=== PATIENT | male | born 1945 | race African-American/Black ===

== ENCOUNTER 2017-08-21 15:25 | Inpatient (IN) | payer OTHER ==
[2017-08-21 16:10] LABS: #Eosinphils 0.1 thou/uL (0.0-0.7); #Lymphocytes 1.8 thou/uL (1.20-3.40); #Monocytes 0.7 thou/uL (0.11-0.59); #Neutrophils 3.6 thou/uL (1.40-6.50); %Basophils 0.8 % (0.0-1.0); %Eosinophils 2.1 % (0.0-10.0); %Lymphocytes 28.8 % (21.0-51.0); %Monocytes 11.8 % (0.0-10.0); %Neutrophils 56.6 % (42.0-75.0); Mean Corpuscular HGB CONC 32.7 g/dL (32.0-36.0); Mean Corpuscular Hemoglobin 28.9 pg (27.0-31.0); Mean Corpuscular Volume 88.6 fl (80.0-94.0); Mean Platelet Volume 6.9 fL (7.4-10.4); Platelet Count 219 thou/uL (130-400); RBC Distribution Width 13.7 % (11.5-14.5); Red Blood Cell (RBC) Count 5.53 mill/uL (4.70-6.10); White Blood Cell (WBC) Count 6.3 thou/uL (4.8-10.8)
--- NOTE | 2017-08-21 16:18 | RAD ---
PORTABLE CHEST ONE VIEW 08/21/17 at 3:57 p.m. HISTORY: Chest pain. FINDINGS: Comparison made to 02/08/17. Changes of median sternotomy again seen. The heart size is normal. The aorta is tortuous. The left si ded AICD remains in place. No focal areas of consolidation, pneumothorax or pleural effusions are see n. IMPRESSION: No acute process. POS: [facility]
[2017-08-21 16:27] LABS: ALT (SGPT) 43 U/L (8-55); AST (SGOT) 43 U/L (5-34); Albumin 3.2 g/dL (3.4-4.8); Alkaline Phosphatase 111 U/L (40-150); Anion Gap 9 mmol/L (10-20); BUN (Urea Nitrogen) 15 mg/dL (8.4-25.7); Bilirubin, Total 0.5 mg/dL (0.2-1.2); Calc. Creatinine Clearance 0 mL/min (70-130); Calcium 8.9 mg/dL (7.8-10.44); Carbon Dioxide 27 mmol/L (23-31); Chloride 106 mmol/L (98-107); Estimated GFR-MDRD Greater than 90; Glucose 146 mg/dL (80-115); Protein, Total 7.2 g/dL (5.8-8.1); Sodium 138 mmol/L (136-145)
[2017-08-21 16:45] LABS: CKMB 4.2 ng/mL (0-6.6); Troponin I 0.043 ng/mL (< 0.028)
[2017-08-21] MEDS ORDERED: hydrALAZINE 20 MG/ML VIAL ONE ×2 (17:36→18:27)
[2017-08-21] MEDS ORDERED: Ketorolac Tromethamine 30 MG/ML VIAL ONE (17:40)
[2017-08-21] MEDS ORDERED: Nitroglycerin 2% Ointment 1 INCH/1 GM Packet ONE (18:05)
[2017-08-21] MEDS ORDERED: Nitroglycerin 50 MG/250 ML BOT 250 ML ONE (19:08)
[2017-08-21 20:01] LABS: Troponin I 0.047 ng/mL (< 0.028)
[2017-08-21 20:14] LABS: INR-International Normal Ratio 1.6; PTT 30.4 SEC (22.9-36.1); Prothrombin Time 19.2 SEC (12.0-14.7)
[2017-08-21] MEDS ORDERED: niCARdipine 20MG In NaCl 20 MG/200 ML BAG ONE (21:04)
[2017-08-21] MEDS ORDERED: cloNIDine 0.1 MG TAB ONE (21:29)
[2017-08-21 22:58] LABS: Troponin I 0.057 ng/mL (< 0.028)
--- NOTE | 2017-08-21 23:11 | HP ---
DATE OF ADMISSION: 08/21/2017 CHIEF COMPLAINT: Chest pain. HISTORY OF PRESENT ILLNESS: This is a 72-year-old -[place] male, who has been incarcerated i n the sn[facility] and has been known history of coronary artery disease and CABG and history of hypertension . The patient was in his usual state of health at the snf and following his recent hospitalization at [facility] for the similar complaint of high blood pressures. He was sent home with amlo dipine 5 mg daily. The patient was having persistent chest pain since two days and has been complain ing to officers at the facility and they decided to bring him to [facility] from [place]. The pa candy was seen in the ER, he was alert and oriented, but he is in severe distress with pain of 4 on 1 0 intensity at the left precordium, associated with some nausea, but no vomiting, no diarrhea, no con stipation. Has no shortness of breath. The patient had similar chest pains in the past and it was n ot associated with high blood pressures. When the patient came in, his blood pressures were 195/110 and he was given hydralazine, which brought it down to 187/115 and then it went up again to 200/111. The patient received almost 2-3 doses of hydralazine in every 2-3 hours intervals and blood pressure s each time came back up. At this time, it is 200/111, so it was decided to admit the patient to the critical care unit with a nitroglycerin drip. The patient is high risk with coronary artery disease and his shutdown planner is not from this [facility]. The patient denies having any other known medical probl ems. PAST MEDICAL HISTORY: 1. Coronary artery disease. 2. Hypertension. PAST SURGICAL HISTORY: History of CABG many years ago. SOCIAL HISTORY: The patient is not a nonsmoker. No history of alcohol, no history of illicit drug u se. FAMILY HISTORY: No significant family history of coronary artery disease. REVIEW OF SYSTEMS: All 12 systems are reviewed with the patient thoroughly and found to be negative at this time. Systems reviewed are HEENT, CVS, PUBLIC HEALTH TECHNOLOGIST, respiratory, GI, , musculoskeletal, skin and i ntegumentary. The following complete review of systems was negative, unless otherwise mentioned in t he HPI or below: Constitutional: Weight loss or gain, sense of well-being, ability to conduct usual activities, exerc ise tolerance. Skin/Breast: Rash, itching, changes in hair growth or loss, nail changes, breast lumps, tenderness, swelling, nipple discharge. Eyes: Vision, double vision, tearing, blind spots, pain. ENT/Mouth: Headaches (location, time of onset, duration, precipitating factors), vertigo, lightheade dness, injury. Vision, double vision, tearing, blind spots, pain, nose bleeding, colds, obstruction, discharge, dental difficulties, gingival bleeding, dentures, neck stiffness, pain, tenderness, masses in thyroid or other areas. Cardiovascular: Precordial pain, substernal distress, palpitations, syncope, dyspnea on exertion, or thopnea, nocturnal paroxysmal dyspnea, edema, cyanosis, hypertension, heart murmurs, varicosities, ph lebitis, claudication. Respiratory: Pain, shortness of breath, wheezing, stridor, cough, hemoptysis, fever or night sweats. Gastrointestinal: Poor appetite, dysphagia, indigestion, abdominal pain, heartburn, eructation, naus ea, vomiting, hematemesis, jaundice, constipation, or diarrhea, abnormal stools (tien-colored, tarry, bloody, greasy, foul smelling), flatulence, hemorrhoids, recent changes in bowel habits. Genitourinary: Urgency, frequency, dysuria, nocturia, hematuria, polyuria, oliguria, unusual (or midlred nge in) color of urine, stones, hesitancy, change in size of stream, dribbling, acute retention or in continence, libido, potency. Musculoskeletal: Pain, swelling, redness or heat of muscles or joints, limitation, of motion, muscul ar weakness, atrophy, cramps. Neurologic/Psychiatric: Convulsions, paralyses, tremor, incoordination, paresthesias, difficulties w ith memory of speech, sensory or motor disturbances, or muscular coordination (ataxia, tremor), emoti onal problems, anxiety, depression, previous psychiatric care, unusual perceptions, hallucinations. Allergy/Immunologic: Skin rash, anemia, bleeding tendency, polydipsia, polyuria, intolerance to heat or cold. PHYSICAL EXAMINATION: VITAL SIGNS: Blood pressures were 200/111, respiratory rate of 18, saturation is 98% on room air. GENERAL: The patient is moderately built and moderately nourished. He appears to be in mild distres s at this time. HEENT: Atraumatic, normocephalic. PERRLA. Extraocular movements were intact. Oral mucosa is pink and moist. CARDIOVASCULAR: S1, S2 normal. No murmurs, rubs or gallops. LUNGS: Bilateral air entry was equal. No wheezing, no crackles. ABDOMEN: Soft, nontender. No guarding, no rebound tenderness. Bowel sounds normal. MUSCULOSKELETAL: No calf tenderness. No pedal edema. No joint tenderness, no joint swelling. SKIN: No cyanosis, no erythema, no rash, no pallor. PUBLIC HEALTH TECHNOLOGIST: Cranial nerve examination II-XII intact. No focal deficits were noted. NECK: No thyromegaly. No JVD was noted. PSYCHIATRIC: No signs of suicidal ideation, no signs of debo was noted. LABORATORY DATA: Sodium is 138, potassium 4.0, chloride is 106, bicarbonate is 27, BUN is 15, creati nine 0.86. AST is 43, ALT is 43, troponin is 0.043, and BNP was 320. WBC 6.3, hemoglobin 16.0, hematocrit is 49.0, platelets are normal. Chest x-ray was unremarkable. No evidence of any pleural effusions was noted. EKG showed no evidenc e of any ST segment changes. ASSESSMENT: 1. Acute hypertensive emergency. 2. Non-ST elevation myocardial infarction. 3. Acute on chronic congestive heart failure, likely diastolic dysfunction. 4. Hyperglycemia. PLAN: 1. Plan is to closely monitor this patient in the ICU. We will admit for nitroglycerin drip at this time. The patient is high cardiac risk, has elevated troponins and persistent chest pains. We will closely monitor this patient and need to bring the blood pressures down pretty quick. He has not re sponded to hydralazine 3 doses. So, we will start the patient on lisinopril 20 mg and also put him o n hydralazine 25 mg p.o. t.i.d. along with a drip. We will consult Cardiology. We will do a 2-D ech o to look for any evidence of wall motion abnormality. We will do a CT chest if his chest pain incre ases disproportionately. Right now his chest pain is 4 on 10 intensity. Need to rule out any eviden ce of aortic dissection. 2. The patient has a history of chronic congestive heart failure with diastolic dysfunction with marry vated BNP. We will continue with the above management at this time. 3. Mild hyperglycemia was noted. No evidence of any diabetes stated by the patient. We will do hem oglobin A1c. 4. The patient has a history of coronary artery disease with coronary artery bypass graft. We will start the patient on aspirin and also on Coreg 6.125 mg p.o. b.i.d. 5. Deep venous thrombosis prophylaxis with Lovenox. We will do 1 mg/kg b.i.d. for cardiac ischemia. I spent 75 minutes with this patient of this one hour as a critical care time.
--- NOTE | 2017-08-21 23:33 | RAD ---
PORTABLE CHEST: 08/21/17 HISTORY: Assess central line placement. COMPARISON: 08/21/17 at 3:57 p.m. FINDINGS/IMPRESSION: Central line via the right jugular has tip overlying SVC. Lungs are clear. no acute process or interv al change noted. POS: [facility]
[2017-08-21] MEDS ORDERED: Fentanyl 100 MCG/2 ML VIAL ONE (23:42)
[2017-08-22] MEDS ORDERED: Acetaminophen 325 MG TAB PO PRN (00:30)
[2017-08-22] MEDS ORDERED: Ondansetron ODT 4 MG TAB PO PRN (00:30)
[2017-08-22] MEDS ORDERED: Enoxaparin Sodium 80 MG/0.8 ML SYRINGE SC SCH (00:45)
[2017-08-22] MEDS ORDERED: Carvedilol 6.25 MG TAB PO SCH ×3 (00:45→10:06)
[2017-08-22] MEDS ORDERED: Famotidine/PF 20 mg/2ml Vial SLOW IVP SCH (00:45)
[2017-08-22] MEDS: hydrALAZINE 25 MG TAB PO SCH ×2 (00:50→08:33)
[2017-08-22 01:12] LABS: Troponin I 0.063 ng/mL (< 0.028)
[2017-08-22 01:25] VITALS: BMI 20.2
[2017-08-22] MEDS ORDERED: Magnesium 2 GM/NS 0.9% 100 ML 2 GM in Premix Bag 1 BAG IVPB SCH (02:45)
[2017-08-22 03:01] LABS: #Basophils 0.1 thou/uL (0.0-0.2); #Eosinphils 0.1 thou/uL (0.0-0.7); #Lymphocytes 1.2 thou/uL (1.20-3.40); #Monocytes 0.5 thou/uL (0.11-0.59); #Neutrophils 3.5 thou/uL (1.40-6.50); %Basophils 1.4 % (0.0-1.0); %Lymphocytes 22.7 % (21.0-51.0); %Monocytes 9.2 % (0.0-10.0); %Neutrophils 65.7 % (42.0-75.0); Hemoglobin 15.1 g/dL (14.0-18.0); Mean Corpuscular HGB CONC 32.9 g/dL (32.0-36.0); Mean Corpuscular Hemoglobin 28.8 pg (27.0-31.0); Mean Corpuscular Volume 87.4 fl (80.0-94.0); Platelet Count 238 thou/uL (130-400); RBC Distribution Width 13.6 % (11.5-14.5); Red Blood Cell (RBC) Count 5.24 mill/uL (4.70-6.10); White Blood Cell (WBC) Count 5.4 thou/uL (4.8-10.8)
[2017-08-22 03:17] LABS: Anion Gap 9 mmol/L (10-20); BUN (Urea Nitrogen) 15 mg/dL (8.4-25.7); Calc. Creatinine Clearance 66 mL/min (70-130); Calcium 8.6 mg/dL (7.8-10.44); Carbon Dioxide 27 mmol/L (23-31); Cardiac Risk 4.2 (Less than 4.5); Chloride 106 mmol/L (98-107); Cholesterol 160 mg/dl (< 200 Desired); Estimated GFR-MDRD Greater than 90; Glucose 183 mg/dL (80-115); HDL Cholesterol 38 mg/dL (>60 Neg Risk); LDL Cholesterol, Calculated 107 mg/dL; Magnesium 1.7 mg/dL (1.6-2.6); Phosphorus 2.5 mg/dL (2.3-4.7); Potassium 3.8 mmol/L (3.5-5.1); Sodium 138 mmol/L (136-145); Triglycerides 76 mg/dL (Less than 150)
[2017-08-22] MEDS: HYDROcodone/Acetaminophen 7.5/325 mg Tablet PO PRN ×2 (07:57→22:12)
[2017-08-22] MEDS: Lisinopril 20 MG TAB PO SCH (08:33)
[2017-08-22] MEDS: Aspirin 325 MG TAB PO SCH (08:34)
[2017-08-22] MEDS: Nitroglycerin 50 MG/250 ML BOT 250 ML IVPB SCH ×2 (08:41→17:03)
[2017-08-22] MEDS: Enoxaparin Sodium 60 MG/0.6 ML SYRINGE SC SCH ×4 (09:00→19:52)
[2017-08-22] MEDS ORDERED: Metoprolol Tartrate 5 MG/5 ML VIAL IVP SCH (10:00)
--- NOTE | 2017-08-22 10:43 | CON ---
DATE OF CONSULTATION: 08/22/2017 REASON FOR CONSULTATION: Chest pain, severe hypertension, coronary artery disease, borderline tropon ins, previous defibrillator. HISTORY OF PRESENT ILLNESS: Mr. Mendez Bray is a 72-year-old man brought here from the [facility] The patient had severe chest pain yesterday in the left side of his chest going u p to the left shoulder and left arm. He says that "felt like when having a heart attack." The patient is still having some pain now, but seemed to be more around the defibrillator site. The patient's past history, he had bypass surgery, he says in the in [place], he says x1. He says, they did not take any veins from his legs, so from his description, I would suspect he had int ernal mammary artery grafting. He has had cardiac catheterization as recently 2 years ago. He gives some history that ultimately ca theterization was done and from his description, there was no obstructive stenosis, although there wa s some consideration for stenting, but the history is not completely clear and no other records are a vailable. He says, he did not have a stent placed at that time. He had defibrillator implantation a couple of years ago. He said that was done at [facility], unknown type of defibrillator in terms of the company. PAST MEDICAL HISTORY: Coronary artery disease, hypertension. PAST SURGICAL HISTORY: Bypass as outlined above. SOCIAL HISTORY: Nonsmoker. He resides in the [facility]. FAMILY HISTORY: Negative for heart disease at a young age. REVIEW OF SYSTEMS: Constitutional: No significant weight gain or loss. Vision: No changes. Heari ng: No changes. Pulmonary: No cough or wheezing. Gastrointestinal: No nausea, vomiting, diarrhea . Skin: No rashes. Neurologic: No unilateral weakness or numbness. Psychiatric: No unusual depression or anxiety. Hematologic: No unusual bruising. Genitourinary: No burning with urination. ALLERGIES: IODINE, we will have to check with him what that means. PHYSICAL EXAMINATION: GENERAL: A pleasant elderly gentleman, in no distress. VITAL SIGNS: Blood pressure 147/96, pulse is variable, sometimes in the 100 range. HEENT: Eyes, sclerae nonicteric. Mouth mucous membranes moist. NECK: Supple, no lymphadenopathy. LUNGS: Clear, no wheezing, rales or rhonchi. CARDIAC: Tachycardic at times. I do not hear a murmur, rub or gallop. ABDOMEN: Soft, nontender. EXTREMITIES: No clubbing or cyanosis. His ankles are in a cast and wrapped. He has chronic edema. He has good femoral pulses bilaterally. PERTINENT LABORATORY DATA AND X-RAY FINDINGS: INR is 1.6. Troponin peak at 0.063, which is in the i ndeterminate range. EKG shows intermittent paced rhythm, but it is confusing about the rhythm strips , there are some pacing spikes and some T waves. There is also some periods of tachycardia and this is also just completely sensed rhythm. ASSESSMENT: 1. Hypertensive urgency with a blood pressure over 200 at times. 2. Chest pain. 3. Previous bypass surgery. 4. Previous defibrillator. PLAN: 1. Increase beta blockers. 2. Trying to get more information about the defibrillator and to see if the device is functioning no rmally. 3. Echocardiography. 4. Probably cardiac catheterization. 5. Also apparently some history of atrial fibrillation on Coumadin. Coumadin is being held. 6. Continue Lovenox. Prognosis guarded.
[2017-08-22 13:24] LABS: Cocaine Metabolite Screen Not Detected (NotDetected); Medtox Reader # READER 4; Methamphetamine Not Detected (NotDetected); Opiate Screen Detected (NotDetected); Phencyclidine (PCP) Not Detected (NotDetected); THC/Cannabinoid Screen Not Detected (NotDetected)
[2017-08-22 13:25] LABS: Amphetamine Not Detected (NotDetected); Barbiturates Screen Not Detected (NotDetected); Benzodiazepine Screen Not Detected (NotDetected); Medtox Control Line Valid? VALID (VALID); Methadone Not Detected (NotDetected); Oxycodone Screen Not Detected (NotDetected); Tricyclic Screen Not Detected (NotDetected)
--- NOTE | 2017-08-22 14:25 | PDOC.PN ---
- Subjective Encounter Start Date: 08/22/17 Encounter Start Time: 12:00 John is seen today, alert and oriented. He continuos to have chest pains. pt remains on Nitro Drip at 30mcg/min - Objective Resuscitation Status: Resuscitation Status FULL:Full Resuscitation MAR Reviewed: Yes Vital Signs & Weight: Vital Signs (12 hours) Temp Pulse BP 08/22/17 08:34 176/109 H 08/22/17 08:33 83 176/109 H 08/22/17 03:00 98.6 F Weight Admit Weight 129 lb 6.581 oz Weight 129 lb 6.581 oz Most Recent Monitor Data Heart Rate from ECG 93 NIBP 134/77 NIBP BP-Mean 103 Respiration from ECG 13 SpO2 100 I&O: 08/21/17 08/22/17 08/23/17 06:59 06:59 06:59 Intake Total 492 Output Total 150 Balance 342 Result Diagrams: 08/22/17 02:23 08/22/17 02:23 Additional Labs: Accuchecks 08/22/17 08/22/17 12:31 10:21 POC Glucose 149 H 107 Radiology Reviewed by me: Yes EKG Reviewed by me: Yes Phys Exam - Physical Examination HEENT: PERRLA, moist MMs Neck: no nodes, no JVD Respiratory: no wheezing, no rales Cardiovascular: RRR, no significant murmur Gastrointestinal: soft, non-tender Musculoskeletal: no edema, pulses present Neurological: non-focal, normal sensation Lymphatic: no nodes Skin: no rash, normal turgor Dx/Plan (1) Accelerated hypertension Code(s): I10 - ESSENTIAL (PRIMARY) HYPERTENSION Status: Acute Comment: Patient has persistant Hypoertension affecting endorgans, Pt will continue on Nitrodrip, will increase hydralazine to 50mg TID, Coreg has been increased to 12.5mg po BID. pt on lisinopril 20mg po daily. (2) NSTEMI (non-ST elevated myocardial infarction) Code(s): I21.4 - NON-ST ELEVATION (NSTEMI) MYOCARDIAL INFARCTION Status: Acute Comment: Pt is on Lovenox 1mg SC BID. will continue with Aspirin. Cardiology Dr. Aguillon consulted. Planned for Cath on thursday. (3) Chest pain Code(s): R07.9 - CHEST PAIN, UNSPECIFIED Status: Acute Qualifiers: Chest pain type: chest pain due to myocardial ischemia Comment: Will continue to Monitor him in ICU. (4) Hx of CABG Status: Acute (5) Acute respiratory failure with hypoxia Code(s): J96.01 - ACUTE RESPIRATORY FAILURE WITH HYPOXIA Status: Acute Comment: Will continue to keep oxygen at 92 %, No h/o COPD. - Plan cont current plan of care, PT/OT, respiratory therapy, incentive spirometry, DVT proph w/lovenox * . - Discharge Day Encounter end time: 12:35 Review of Systems - Review of Systems Eyes: negative: Pain, Vision Change, Conjunctivae Inflammation, Eyelid Inflammation, Redness, Other ENT: negative: Ear Pain, Ear Discharge, Nose Pain, Nose Discharge, Nose Congestion, Mouth Pain, Mouth Swelling, Throat Pain, Throat Swelling, Other Respiratory: negative: Cough, Dry, Shortness of Breath, Hemoptysis, SOB with Excertion, Pleuritic Pain, Sputum, Wheezing Cardiovascular: chest pain, orthopnea, paroxysmal nocturnal dyspnea. negative: palpitations, edema, light headedness, other Gastrointestinal: negative: Nausea, Vomiting, Abdominal Pain, Diarrhea, Constipation, Melena, Hematochezia, Other Genitourinary: negative: Dysuria, Frequency, Incontinence, Hematuria, Retention , Other Musculoskeletal: negative: Neck Pain, Shoulder Pain, Arm Pain, Back Pain, Hand Pain, Leg Pain, Foot Pain, Other Skin: negative: Rash, Lesions, Jose Angel, Bruising, Other - Medications/Allergies Allergies/Adverse Reactions: Allergies Allergy/AdvReac Type Severity Reaction Status Date / Time iodine Allergy Verified 08/22/17 01:01 Medications: Current Medications Acetaminophen (Tylenol) 650 mg PO Q4H PRN PRN Reason: Headache/Fever or Pain Hydrocodone Bitart/Acetaminophen ([place] 7.5/325) 2 tab PO Q4H PRN PRN Reason: Severe Pain (7-10) Last Admin: 08/22/17 07:57 Dose: 2 tab Aspirin (Aspirin) 325 mg PO DAILY [facility] Last Admin: 08/22/17 08:34 Dose: 325 mg Carvedilol (Coreg) 12.5 mg PO BID [facility] Enoxaparin Sodium (Lovenox) 60 mg SC 0900,2100 [facility] Last Admin: 08/22/17 10:26 Dose: 60 mg Famotidine (Pepcid) 20 mg SLOW IVP Q12HR [facility] Hydralazine HCl (Apresoline) 50 mg PO TID [facility] Nitroglycerin/Dextrose (Nitroglycerin 50 Mg/250 Ml Bot) 250 mls @ 0 mls/hr IVPB INF LADAN; Titrate PRN Reason: Protocol Last Admin: 08/22/17 08:41 Dose: 250 mls Influenza Virus Vaccine (Fluzone High-Dose Syr) 0.5 ml IM .ONCE ONE Stop: 08/23/17 09:01 Lisinopril (Zestril) 20 mg PO DAILY [facility] Last Admin: 08/22/17 08:33 Dose: 20 mg Ondansetron HCl (Zofran Odt) 4 mg PO Q6H PRN PRN Reason: Nausea/Vomiting Ondansetron HCl (Zofran) 4 mg IVP Q6H PRN PRN Reason: Nausea/Vomiting Sodium Chloride (Flush - Normal Saline) 10 ml IVF Q12HR [facility] Last Admin: 08/22/17 10:41 Dose: 10 ml Sodium Chloride (Flush - Normal Saline) 10 ml IVF PRN PRN PRN Reason: Saline Flush
[2017-08-22] MEDS ORDERED: hydrALAZINE 25 MG TAB PO SCH (15:00)
[2017-08-22] MEDS ORDERED: Amlodipine 5 MG TAB PO SCH (17:45)
[2017-08-22] MEDS: Carvedilol 6.25 MG TAB PO SCH ×2 (18:15→19:35)
[2017-08-22] MEDS: Ondansetron PF 4 MG/2 ML Vial IVP PRN (19:42)
[2017-08-23] MEDS: Nitroglycerin 50 MG/250 ML BOT 250 ML IVPB SCH ×5 (01:13→20:08)
[2017-08-23] MEDS: HYDROcodone/Acetaminophen 7.5/325 mg Tablet PO PRN (02:20)
[2017-08-23] MEDS: Aspirin 325 MG TAB PO SCH (08:35)
[2017-08-23] MEDS: Albumin 5% 0 ML ONE ×2 (08:35→10:58)
[2017-08-23] MEDS: Lisinopril 20 MG TAB PO SCH ×3 (08:36→20:00)
[2017-08-23] MEDS: Famotidine/PF 20 mg/2ml Vial SLOW IVP SCH ×2 (08:37→20:00)
[2017-08-23] MEDS ORDERED: Albumin 25% 100 ML ONE (08:49)
[2017-08-23] MEDS ORDERED: Amlodipine 5 MG TAB PO SCH (09:00)
[2017-08-23] MEDS ORDERED: FLU VACC TS2017-18 (>65YR) 0.5 ML SYRINGE IM ONE (09:00)
[2017-08-23] MEDS ORDERED: Amlodipine 10 MG TAB PO SCH (09:00)
[2017-08-23] MEDS: Enoxaparin Sodium 60 MG/0.6 ML SYRINGE SC SCH (09:09)
[2017-08-23] MEDS ORDERED: Communication Order-Pharmacy FS SCH (09:30)
[2017-08-23] MEDS ORDERED: Diazepam 5 MG TAB PO SCH (09:30)
--- NOTE | 2017-08-23 09:42 | PRG ---
DATE OF SERVICE: 08/23/2017 SUBJECTIVE: Mr. Bray is feeling better, but the blood pressure is still high, still on high dose i ntravenous beta diamante. He has occasional chest pain. OBJECTIVE: LUNGS: Clear. CARDIAC: Normal S1, normal S2. ABDOMEN: Soft, nontender. EXTREMITIES: No edema. PERTINENT LABORATORY DATA AND IMAGING: Creatinine is 0.86. Echocardiogram showed severe left ventri cular hypertrophy. ASSESSMENT: 1. Chest pain. 2. Coronary artery disease. 3. Hypertensive heart disease. PLAN: Proceed to cardiac catheterization tomorrow. I discussed the risk and emphasized the risk of emergency bypass surgery, stent thrombosis, stent restenosis. The patient understands and wishes to proceed.
[2017-08-23] MEDS ORDERED: Spironolactone 25 MG TAB PO SCH (09:45)
[2017-08-23] MEDS: Carvedilol 25 MG TAB PO SCH ×2 (10:00→20:00)
[2017-08-23] MEDS: Albumin 25% 100 ML ONE ×2 (11:09→11:10)
[2017-08-23] MEDS: niCARdipine HCl 25 MG in Sodium Chloride 0.9% 250 ML 240 ML IVPB SCH ×5 (11:38→22:26)
--- NOTE | 2017-08-23 11:48 | CON ---
DATE OF CONSULTATION: 08/23/2017 CONSULTING PHYSICIAN: [facility]. REASON FOR CONSULTATION: ICU stay. HISTORY OF PRESENT ILLNESS: The patient is a 72-year-old -[place] male who is an inmate of the [facility]. He presented to the hospital on 08/21/2017 with chest pain and shortness of breath. He has been started on nitroglycerin drip. He is still having difficulty controlling his blood pressure. He is still having some chest pain. He is scheduled for cardiac catheterization tomorrow. PAST MEDICAL HISTORY: 1. Hypertension. 2. Coronary artery disease. PAST SURGICAL HISTORY: Coronary artery bypass grafting surgery many years ago. SOCIAL HISTORY: Nonsmoker. Does not consume alcohol. Does not use illicit drugs. FAMILY MEDICAL HISTORY: Unremarkable for any chronic illnesses. REVIEW OF SYSTEMS: Twelve-point review of systems is otherwise negative except as mentioned above. MEDICATIONS: His outpatient are numerous and include hydralazine, diphenhydramine, Catapres, Tegretol, zinc sulfate, Coumadin, terazosin, potassium chloride, Nitrostat, multivitamin, minoxidil, Cozaar, isosorbide mononitrate, NPH insulin, furosemide, iron sulfate, Coreg, atorvastatin, aspirin , vitamin C, amlodipine, and albuterol. CURRENT INPATIENT MEDICATIONS: Include acetaminophen, Norvasc, aspirin, Coreg, Valium, Pepcid, Lasix, Apresoline, [place], Zestril, nitroglycerin, Zofran, Aldactone. PHYSICAL EXAMINATION: VITAL SIGNS: Blood pressure 196/96, pulse 65, respirations 20, O2 sat 95%. GENERAL: The patient is alert and talkative and in no distress. He is currently on nitroglycerin drip. HEENT EXAM: Pupils react. Sclerae anicteric. Oropharynx clear. NECK: Without adenopathy or JVD. LUNGS: A few crackles in both bases. CARDIAC: S1 and S2, irregularly irregular, no murmur. ABDOMEN: Soft and nontender. EXTREMITIES: No clubbing or cyanosis. He has stasis ulcers over his lower extremities, wrapped and compression stockings. IMAGING: His chest x-ray shows cardiomegaly with a defibrillator/pacemaker in place, no acute infiltrates. LABORATORY DATA: White blood cell count 5.4, hematocrit 45.7, platelet count 238. INR 1.6. Sodium 138, potassium 3.8, chloride 106, CO2 of 27, BUN 15, creatinine 0.8, glucose 183. Troponin 0.63. BNP 175. ASSESSMENT: 1. Hypertensive emergency. 2. Coronary artery disease with continued chest pain. 3. Diabetes mellitus with good control of blood sugars. PLAN: 1. Nicardipine as needed for blood pressure control. 2. Continue nitroglycerin drip if needed. 3. At the current time, his anticoagulation is being held at the discretion of the hot stone setter and pin drafter operator. 70 min. of time was pent performing this consultation. Of the 70 min., greater than 50% of time was spent on counseling and coordination of care [facility]
[2017-08-23] MEDS ORDERED: Furosemide 40 MG/4 ML VIAL ONE (12:02)
--- NOTE | 2017-08-23 12:45 | PDOC.PN ---
- Subjective Encounter Start Date: 08/23/17 Encounter Start Time: 11:00 John varma today, in ICU, pt Bp are poorly controlled even with all maxed out doses of oral hypertensives and on Nitrodrip, Pt c/o Chest tightness poersistant, associatted with headache and perspirations occasionally, Explained will look for secondary causes of this hypertension. - Objective Resuscitation Status: Resuscitation Status FULL:Full Resuscitation MAR Reviewed: Yes Vital Signs & Weight: Vital Signs (12 hours) Temp Pulse Resp BP Pulse Ox 08/23/17 11:11 196/116 H 08/23/17 11:01 196/116 H 08/23/17 08:36 196/116 H 08/23/17 08:00 97.8 F 98 17 97 08/23/17 03:00 97.8 F Weight Admit Weight 129 lb 6.581 oz Weight 130 lb 1.164 oz Most Recent Monitor Data Heart Rate from ECG 96 NIBP 167/105 NIBP BP-Mean 124 Respiration from ECG 20 SpO2 92 I&O: 08/22/17 08/23/17 08/24/17 06:59 06:59 06:59 Intake Total 492 1620 624 Output Total 150 1050 660 Balance 342 570 -36 Result Diagrams: 08/22/17 02:23 08/22/17 02:23 Additional Labs: Accuchecks 08/22/17 17:00 POC Glucose 122 H Radiology Reviewed by me: Yes EKG Reviewed by me: Yes Dx/Plan (1) Accelerated hypertension Code(s): I10 - ESSENTIAL (PRIMARY) HYPERTENSION Status: Acute Comment: Patient has persistant Hypoertension affecting endorgans, Pt will continue on Nitrodrip, Recycling Worker ordered nicardipine drip, will continue Hydralaizine 25mg BID as changed by cardioogy, Coreg has been increased to 25mg po BID. pt on lisinopril 40mg po daily. Will look for Secondary causes of HTN, likely his symptoms fir into pheochromocytoma with low suspicion, will order plasma Fractionated Catecholamines if High will order CT abdomen. (2) NSTEMI (non-ST elevated myocardial infarction) Code(s): I21.4 - NON-ST ELEVATION (NSTEMI) MYOCARDIAL INFARCTION Status: Acute Comment: Pt is on Lovenox 1mg SC BID. will continue with Aspirin. Cardiology Dr. Aguillon consulted. Planned for Cath on thursday. (3) Chest pain Code(s): R07.9 - CHEST PAIN, UNSPECIFIED Status: Acute Qualifiers: Chest pain type: chest pain due to myocardial ischemia Comment: Will continue to Monitor him in ICU. (4) Hx of CABG Status: Acute (5) Acute respiratory failure with hypoxia Code(s): J96.01 - ACUTE RESPIRATORY FAILURE WITH HYPOXIA Status: Acute Comment: Will continue to keep oxygen at 92 %, pt takes lasix BID, so will add lasix 40mg IV daily as there is no evidence of pumonanry edema now, BNP is high. (6) Acute diastolic (congestive) heart failure Code(s): I50.31 - ACUTE DIASTOLIC (CONGESTIVE) HEART FAILURE Status: Acute Comment: Pt on BB, ACEi, Lasix, will add Spironolactone, Echo showed Concentric hypertrophy with diastolic dysfucntion. - Plan cont current plan of care, PT/OT, social work administrator, incentive spirometry, DVT proph w/SCDs * . - Discharge Day Encounter end time: 11:45 (45 min critical care time. 11-1145 Am) Review of Systems - Review of Systems Eyes: negative: Pain, Vision Change, Conjunctivae Inflammation, Eyelid Inflammation, Redness, Other ENT: negative: Ear Pain, Ear Discharge, Nose Pain, Nose Discharge, Nose Congestion, Mouth Pain, Mouth Swelling, Throat Pain, Throat Swelling, Other Respiratory: Shortness of Breath. negative: Cough, Dry, Hemoptysis, SOB with Excertion, Pleuritic Pain, Sputum, Wheezing Cardiovascular: chest pain. negative: palpitations, orthopnea, paroxysmal nocturnal dyspnea, edema, light headedness, other Gastrointestinal: negative: Nausea, Vomiting, Abdominal Pain, Diarrhea, Constipation, Melena, Hematochezia, Other Musculoskeletal: Back Pain (occiasionally). negative: Neck Pain, Shoulder Pain , Arm Pain, Hand Pain, Leg Pain, Foot Pain, Other Skin: negative: Rash, Lesions, Jose Angel, Bruising, Other Neurological: negative: Weakness, Numbness, Incoordination, Change in Speech, Confusion, Seizures, Other - Medications/Allergies Allergies/Adverse Reactions: Allergies Allergy/AdvReac Type Severity Reaction Status Date / Time iodine Allergy Verified 08/22/17 01:01 Medications: Current Medications Acetaminophen (Tylenol) 650 mg PO Q4H PRN PRN Reason: Headache/Fever or Pain Hydrocodone Bitart/Acetaminophen ([place] 7.5/325) 2 tab PO Q4H PRN PRN Reason: Severe Pain (7-10) Last Admin: 08/23/17 02:20 Dose: 2 tab Amlodipine Besylate (Norvasc) 10 mg PO DAILY [facility] Last Admin: 08/23/17 11:01 Dose: 5 mg Aspirin (Aspirin) 325 mg PO DAILY [facility] Last Admin: 08/23/17 08:35 Dose: 325 mg Carvedilol (Coreg) 25 mg PO BID [facility] Last Admin: 08/23/17 10:00 Dose: 25 mg Diazepam (Valium) 5 mg PO .WILLCALL [facility] Stop: 08/24/17 15:00 Famotidine (Pepcid) 20 mg SLOW IVP Q12HR [facility] Last Admin: 08/23/17 08:37 Dose: 20 mg Furosemide (Lasix) 40 mg SLOW IVP DAILY [facility] Last Admin: 08/23/17 12:05 Dose: 40 mg Hydralazine HCl (Apresoline) 25 mg PO TID [facility] Nitroglycerin/Dextrose (Nitroglycerin 50 Mg/250 Ml Bot) 250 mls @ 0 mls/hr IVPB INF [facility]; Titrate PRN Reason: Protocol Last Admin: 08/23/17 11:39 Dose: 250 mls Sodium Chloride (Normal Saline 0.9%) 1,000 mls @ 80 mls/hr IV .[id number] [facility] Nicardipine HCl 25 mg/ Sodium (Chloride) 250 mls @ 0 mls/hr IVPB INF [facility]; Titrate PRN Reason: Protocol Last Admin: 08/23/17 11:38 Dose: 250 mls Lisinopril (Zestril) 20 mg PO BID [facility] Last Admin: 08/23/17 11:11 Dose: Not Given Ondansetron HCl (Zofran Odt) 4 mg PO Q6H PRN PRN Reason: Nausea/Vomiting Ondansetron HCl (Zofran) 4 mg IVP Q6H PRN PRN Reason: Nausea/Vomiting Last Admin: 08/22/17 19:42 Dose: 4 mg Sodium Chloride (Flush - Normal Saline) 10 ml IVF Q12HR [facility] Last Admin: 08/23/17 12:07 Dose: 10 ml Sodium Chloride (Flush - Normal Saline) 10 ml IVF PRN PRN PRN Reason: Saline Flush
[2017-08-23] MEDS: hydrALAZINE 25 MG TAB PO SCH ×2 (16:06→20:00)
[2017-08-23] MEDS: predniSONE 20 MG TAB PO SCH (18:10)
[2017-08-24] MEDS: predniSONE 20 MG TAB PO SCH ×2 (00:17→05:19)
[2017-08-24] MEDS: niCARdipine HCl 25 MG in Sodium Chloride 0.9% 250 ML 240 ML IVPB SCH ×6 (00:54→15:01)
[2017-08-24] MEDS: Nitroglycerin 50 MG/250 ML BOT 250 ML IVPB SCH ×2 (02:33→06:38)
[2017-08-24 04:52] LABS: INR-International Normal Ratio 1.1; Prothrombin Time 14.1 SEC (12.0-14.7)
[2017-08-24] MEDS: Sodium Chloride 0.9% 1,000 ML IV SCH ×2 (05:19→17:36)
--- NOTE | 2017-08-24 05:37 | PDOC.PULPN ---
Progress Note: Subj/Obj - Subjective Date: 08/24/17 Time: 05:34 Narrative: Breathing OK. Awaiting cardiac cath - ROS Constitutional: weakness Cardiovascular: edema Respiratory: short of breath - Objective Allergies/Adverse Reactions: Allergies Allergy/AdvReac Type Severity Reaction Status Date / Time iodine Allergy Verified 08/22/17 01:01 MAR Reviewed: Yes Vital Signs: Vital Signs Temp 99.3 F 08/24/17 03:00 Pulse 87 08/23/17 20:00 Resp 20 08/23/17 20:00 BP 146/75 H 08/23/17 20:00 Pulse Ox 98 08/23/17 20:00 Intake & Output 08/23/17 08/23/17 08/24/17 06:59 18:59 06:59 Intake Total 514 1856 Output Total 800 1710 200 Balance -286 146 -200 Weight 130 lb 1.164 oz 177 lb 4.026 oz Intake: Intake, IV Amount 394 1066 Nitroglycerin 50 MG/250 394 489 ML BOT 250 ml @ Titrate IVPB INF [facility] Rx#:[id number] niCARdipine HCl 25 mg In 577 Sodium Chloride 0.9% 250 ML 240 ml @ Titrate IVPB INF [facility] Rx#:[id number] Oral 120 690 Intake, Blood - not 100 scanned Other 100 Output: Urine 800 1710 200 Other: Voiding Method Urinal Urinal Urinal # Bowel Movements 1 Progress Note: Exam - Physical Exam Constitutional: NAD HEENT: PERRLA Neck: no nodes, no JVD Cardiovascular: RRR Deviation from normal: 2/6 THERESA Respiratory: clear to auscultation bilaterally Gastrointestinal: soft, non-tender Musculoskeletal: edema present Neurological: non-focal, normal sensation, moves all 4 limbs Lymphatic: no nodes Psychiatric: normal affect, A&O x 3 Skin: no rash Progress Note: Data - Labs Result Diagrams: 08/22/17 02:23 08/22/17 02:23 Progress Note: A/P - Problems (1) Hypertensive emergency Current Visit: Yes Status: Acute Code(s): I16.1 - HYPERTENSIVE EMERGENCY (2) Acute diastolic (congestive) heart failure Current Visit: Yes Status: Acute Code(s): I50.31 - ACUTE DIASTOLIC ( CONGESTIVE) HEART FAILURE (3) Acute respiratory failure with hypoxia Current Visit: Yes Status: Acute Code(s): J96.01 - ACUTE RESPIRATORY FAILURE WITH HYPOXIA (4) NSTEMI (non-ST elevated myocardial infarction) Current Visit: Yes Status: Acute Code(s): I21.4 - NON-ST ELEVATION (NSTEMI) MYOCARDIAL INFARCTION - Plan Plan: Continue cardene drip for BP control Hopefully wean off NTG drip after cath May need renal arterial run-off during cath to r/o renalvascular hypertension continue CCU care
[2017-08-24] MEDS ORDERED: Diazepam 5 MG TAB PO SCH (06:00)
[2017-08-24] MEDS ORDERED: Lidocaine 1% (PF) 30 ML VIAL ONE (06:46)
[2017-08-24] MEDS ORDERED: Metoprolol Tartrate 5 MG/5 ML VIAL ONE ×2 (07:40→08:13)
[2017-08-24] MEDS ORDERED: Fentanyl 100 MCG/2 ML VIAL ONE (07:40)
[2017-08-24] MEDS ORDERED: Midazolam HCl 2 mg/2 ml Vial ONE (07:40)
[2017-08-24] MEDS ORDERED: Iopamidol 370 76% 100 ML VIAL ONE (07:56)
[2017-08-24] MEDS ORDERED: traMADol HCl 50 MG TAB PO PRN (08:25)
[2017-08-24] MEDS ORDERED: Acetaminophen/Codeine 30-300mg Tablet PO PRN (08:25)
[2017-08-24] MEDS ORDERED: Nitroglycerin 0.4 MG TAB (25 Tab Bottle) SL PRN (08:25)
[2017-08-24] MEDS ORDERED: Sodium Chloride 0.9% 200 ML IV SCH (08:30)
[2017-08-24] MEDS: Lisinopril 20 MG TAB PO SCH ×2 (08:48→20:58)
[2017-08-24] MEDS: Carvedilol 25 MG TAB PO SCH ×2 (08:48→20:58)
[2017-08-24] MEDS: Famotidine 20 MG TAB PO SCH ×2 (08:49→20:58)
[2017-08-24] MEDS: Acetaminophen/Codeine 30-300mg Tablet PO PRN ×2 (08:57→16:57)
[2017-08-24] MEDS ORDERED: Furosemide 40 MG/4 ML VIAL SLOW IVP SCH (09:00)
[2017-08-24] MEDS: NIFEdipine XL 90 MG TAB PO SCH (09:02)
[2017-08-24] MEDS ORDERED: Nitroglycerin 50 MG/250 ML BOT 0 ML ONE (09:29)
[2017-08-24] MEDS: Ondansetron PF 4 MG/2 ML Vial IVP PRN (10:50)
--- NOTE | 2017-08-24 13:33 | PDOC.PN ---
- Subjective Encounter Start Date: 08/24/17 Encounter Start Time: 11:30 Patient is seen today, alert and oriented. He just came out of Cath, everything for normal. he remains hypertensive. - Objective Resuscitation Status: Resuscitation Status FULL:Full Resuscitation MAR Reviewed: Yes Vital Signs & Weight: Vital Signs (12 hours) Temp Pulse Resp BP BP Pulse Ox 08/24/17 12:00 98.3 F 08/24/17 09:02 75 145/74 H 08/24/17 08:48 148/78 H 08/24/17 08:25 98.2 F 76 19 153/77 H 94 L 08/24/17 07:13 98.2 F 85 19 97 08/24/17 07:00 98.2 F 08/24/17 03:00 99.3 F Weight Admit Weight 129 lb 6.581 oz Weight 177 lb 4.026 oz Most Recent Monitor Data Heart Rate from ECG 87 NIBP 157/80 NIBP BP-Mean 105 Respiration from ECG 18 SpO2 93 I&O: 08/23/17 08/24/17 08/25/17 06:59 06:59 06:59 Intake Total 1620 3749 0 Output Total 1050 1910 500 Balance 570 1839 -500 Result Diagrams: 08/22/17 02:23 08/22/17 02:23 Additional Labs: Accuchecks 08/24/17 08/23/17 10:49 16:15 POC Glucose 130 H 113 H Radiology Reviewed by me: Yes Phys Exam - Physical Examination HEENT: PERRLA, moist MMs Neck: no nodes, no JVD Respiratory: no wheezing, no rales Cardiovascular: RRR, no significant murmur Gastrointestinal: soft, non-tender Musculoskeletal: no edema, pulses present Neurological: non-focal, normal sensation Lymphatic: no nodes Psychiatric: normal affect, A&O x 3 Skin: no rash, normal turgor Dx/Plan (1) Accelerated hypertension Code(s): I10 - ESSENTIAL (PRIMARY) HYPERTENSION Status: Acute Comment: Patient has persistant Hypoertension affecting endorgans, Pt will continue on Nitrodrip, 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 pt on lisinopril 40mg po daily. Will look for Secondary causes of HTN, terry vasculr hypertension evalaution at Cath, pending Catecholamine levels. (2) NSTEMI (non-ST elevated myocardial infarction) Code(s): I21.4 - NON-ST ELEVATION (NSTEMI) MYOCARDIAL INFARCTION Status: Acute Comment: Pt is on Lovenox 1mg SC BID. will continue with Aspirin. Cardiology Dr. Aguillon consulted. Cath normal.. (3) Chest pain Code(s): R07.9 - CHEST PAIN, UNSPECIFIED Status: Acute Qualifiers: Chest pain type: chest pain due to myocardial ischemia Comment: Will continue to Monitor him in ICU. (4) Hx of CABG Status: Acute (5) Acute respiratory failure with hypoxia Code(s): J96.01 - ACUTE RESPIRATORY FAILURE WITH HYPOXIA Status: Acute Comment: Will continue to keep oxygen at 92 %, pt takes lasix BID, so will add lasix 40mg IV daily as there is no evidence of pumonanry edema now, BNP is high. (6) Acute diastolic (congestive) heart failure Code(s): I50.31 - ACUTE DIASTOLIC (CONGESTIVE) HEART FAILURE Status: Acute Comment: Pt on BB, ACEi, Lasix, will add Spironolactone, Echo showed Concentric hypertrophy with diastolic dysfucntion. - Plan cont current plan of care, PT/OT, high school social studies tutor, respiratory therapy, incentive spirometry, DVT proph w/lovenox * . - Discharge Day Encounter end time: 12:10 Review of Systems - Review of Systems Eyes: negative: Pain, Vision Change, Conjunctivae Inflammation, Eyelid Inflammation, Redness, Other ENT: negative: Ear Pain, Ear Discharge, Nose Pain, Nose Discharge, Nose Congestion, Mouth Pain, Mouth Swelling, Throat Pain, Throat Swelling, Other Respiratory: negative: Cough, Dry, Shortness of Breath, Hemoptysis, SOB with Excertion, Pleuritic Pain, Sputum, Wheezing Cardiovascular: chest pain, palpitations. negative: orthopnea, paroxysmal nocturnal dyspnea, edema, light headedness, other Gastrointestinal: negative: Nausea, Vomiting, Abdominal Pain, Diarrhea, Constipation, Melena, Hematochezia, Other Genitourinary: negative: Dysuria, Frequency, Incontinence, Hematuria, Retention , Other Musculoskeletal: negative: Neck Pain, Shoulder Pain, Arm Pain, Back Pain, Hand Pain, Leg Pain, Foot Pain, Other Skin: negative: Rash, Lesions, Jose Angel, Bruising, Other - Medications/Allergies Allergies/Adverse Reactions: Allergies Allergy/AdvReac Type Severity Reaction Status Date / Time iodine Allergy Verified 08/22/17 01:01 Medications: Current Medications Acetaminophen (Tylenol) 650 mg PO Q4H PRN PRN Reason: Headache/Fever or Pain Acetaminophen/Codeine Phosphate (Tylenol #3) 1 tab PO Q4H PRN PRN Reason: Mild Pain (1-3) Acetaminophen/Codeine Phosphate (Tylenol #3) 2 tab PO Q4H PRN PRN Reason: Moderate Pain (4-6) Last Admin: 08/24/17 08:57 Dose: 2 tab Hydrocodone Bitart/Acetaminophen ([place] 7.5/325) 2 tab PO Q4H PRN PRN Reason: Severe Pain (7-10) Last Admin: 08/23/17 02:20 Dose: 2 tab Aspirin (Aspirin Chewable) 81 mg PO DAILY [facility] Last Admin: 08/24/17 08:53 Dose: 81 mg Atorvastatin Calcium (Lipitor) 40 mg PO HS [facility] Carvedilol (Coreg) 50 mg PO BID [facility] Last Admin: 08/24/17 08:48 Dose: 50 mg Diazepam (Valium) 5 mg PO .WILLCALL [facility] Stop: 08/24/17 15:00 Famotidine (Pepcid) 20 mg PO Q12HR [facility] Last Admin: 08/24/17 08:49 Dose: 20 mg Furosemide (Lasix) 20 mg PO DAILY [facility] Hydralazine HCl (Apresoline) 50 mg PO TID [facility] Nitroglycerin/Dextrose (Nitroglycerin 50 Mg/250 Ml Bot) 250 mls @ 0 mls/hr IVPB INF [facility]; Titrate PRN Reason: Protocol Last Admin: 08/24/17 06:38 Dose: 250 mls Sodium Chloride (Normal Saline 0.9%) 1,000 mls @ 80 mls/hr IV .[id number] [facility] Last Admin: 08/24/17 05:19 Dose: 1,000 mls Nicardipine HCl 25 mg/ Sodium (Chloride) 250 mls @ 0 mls/hr IVPB INF [facility]; Titrate PRN Reason: Protocol Last Admin: 08/24/17 12:32 Dose: 250 mls Sodium Chloride (Normal Saline 0.9%) 200 mls @ 0 mls/hr IV NOW [facility] PRN Reason: As Directed Stop: 08/24/17 14:00 Last Admin: 08/24/17 08:55 Dose: 200 mls Lisinopril (Zestril) 20 mg PO BID [facility] Last Admin: 08/24/17 08:48 Dose: 20 mg Nifedipine (Procardia Xl) 90 mg PO DAILY [facility] Last Admin: 08/24/17 09:02 Dose: 90 mg Nitroglycerin (Nitrostat) 0.4 mg SL Q5MIN PRN PRN Reason: Chest Pain Ondansetron HCl (Zofran Odt) 4 mg PO Q6H PRN PRN Reason: Nausea/Vomiting Ondansetron HCl (Zofran) 4 mg IVP Q6H PRN PRN Reason: Nausea/Vomiting Last Admin: 08/24/17 10:50 Dose: 4 mg Sodium Chloride (Flush - Normal Saline) 10 ml IVF Q12HR [facility] Last Admin: 08/24/17 09:00 Dose: 10 ml Sodium Chloride (Flush - Normal Saline) 10 ml IVF PRN PRN PRN Reason: Saline Flush Tramadol HCl (Ultram) 50 mg PO Q6H PRN PRN Reason: Moderate Pain (4-6) Warfarin Sodium (Coumadin) 5 mg PO 1700 [facility]
[2017-08-24] MEDS: hydrALAZINE 25 MG TAB PO SCH ×2 (14:41→20:58)
[2017-08-24] MEDS: Warfarin Sodium 5 MG TAB PO SCH (16:55)
[2017-08-24] MEDS: Atorvastatin Calcium 40 MG TAB PO SCH (20:58)
[2017-08-25] MEDS: Sodium Chloride 0.9% 1,000 ML IV SCH (01:55)
[2017-08-25 04:50] LABS: #Monocytes 0.5 thou/uL (0.11-0.59); #Neutrophils 8.8 thou/uL (1.40-6.50); %Basophils 0.1 % (0.0-1.0); %Eosinophils 0.1 % (0.0-10.0); %Monocytes 4.8 % (0.0-10.0); Hemoglobin 13.7 g/dL (14.0-18.0); INR-International Normal Ratio 1.1; Mean Corpuscular HGB CONC 31.7 g/dL (32.0-36.0); Mean Corpuscular Hemoglobin 27.9 pg (27.0-31.0); Mean Platelet Volume 6.5 fL (7.4-10.4); Platelet Count 252 thou/uL (130-400); Prothrombin Time 14.7 SEC (12.0-14.7); RBC Distribution Width 13.8 % (11.5-14.5); Red Blood Cell (RBC) Count 4.89 mill/uL (4.70-6.10); White Blood Cell (WBC) Count 10.4 thou/uL (4.8-10.8)
[2017-08-25 05:13] LABS: Anion Gap 9 mmol/L (10-20); BUN (Urea Nitrogen) 26 mg/dL (8.4-25.7); Calc. Creatinine Clearance 85 mL/min (70-130); Calcium 8.1 mg/dL (7.8-10.44); Carbon Dioxide 24 mmol/L (23-31); Chloride 108 mmol/L (98-107); Estimated GFR-MDRD Greater than 90; Glucose 165 mg/dL (80-115); Potassium 4.1 mmol/L (3.5-5.1); Sodium 137 mmol/L (136-145)
--- NOTE | 2017-08-25 07:45 | PRG ---
DATE OF SERVICE: 08/25/2017 He is doing today. He has been weaned off the nitroglycerin and Cardene drips. PHYSICAL EXAMINATION: VITAL SIGNS: Temperature 98.5, pulse 67, blood pressure 129/72, O2 sat 96%. Total intake for 24 carlos rs 3822, output 975. HEENT: Unremarkable. NECK: No JVD. CHEST: Clear. CARDIAC: S1, S2 regular. ABDOMEN: Soft. EXTREMITIES: No edema. LABORATORY DATA: White blood cell count 10.4, hematocrit 43, platelet count 252. INR 1.1. Sodium 1 37, potassium 4.1, chloride 108, CO2 24, BUN 26, creatinine 0.9, glucose 165. ASSESSMENT: 1. Hypertensive emergency, which has resolved. 2. Chest pain - apparently he had an insignificant cardiac catheterization. PLAN: He can be moved to the floor, continue antihypertensive medications. Further workup of hypert ension per Cardiology.
[2017-08-25] MEDS: Famotidine 20 MG TAB PO SCH ×2 (09:30→20:44)
[2017-08-25] MEDS: Carvedilol 25 MG TAB PO SCH ×2 (09:30→20:43)
[2017-08-25] MEDS: Lisinopril 20 MG TAB PO SCH ×2 (09:31→20:43)
[2017-08-25] MEDS: hydrALAZINE 25 MG TAB PO SCH ×3 (09:31→20:44)
[2017-08-25] MEDS: Furosemide 20 MG TAB PO SCH (09:31)
[2017-08-25] MEDS: NIFEdipine XL 90 MG TAB PO SCH (09:31)
--- NOTE | 2017-08-25 10:35 | PRG ---
DATE OF SERVICE: 08/25/2017 SUBJECTIVE: Mr. Bray is doing well today with no complaints other than feeling lightheaded when he gets up. He has no chest pain. He is out on the telemetry area now PHYSICAL EXAMINATION: VITAL SIGNS: Blood pressure was earlier 127/76, now it is 150 systolic. This is much lower than be ore. LUNGS: Clear. CARDIAC: Normal S1, normal S2. ABDOMEN: Soft, nontender. EXTREMITIES: No edema. ASSESSMENT: 1. Hypertension with hypertensive heart disease. 2. Previous defibrillator implantation. 3. Mild to moderate coronary disease, best treated medically, no obstructive atherosclerosis seen on catheterization. 4. Blood pressure is better improved, but probably much lower than what he is used to. PLAN: 1. Okay to ambulate. 2. He is on multiple medicines, blood pressure well controlled. 3. Hep-Lock IV.
--- NOTE | 2017-08-25 11:27 | PDOC.PN ---
- Subjective Encounter Start Date: 08/25/17 Encounter Start Time: 11:27 Subjective: nsg notes rev, shaji ovn, c/o continued intermittent back pain which he -: states is what brought him in. also c/o headache ever since his SBP has -: been "normal" and states this often occurs when his BP is normal - Objective Resuscitation Status: Resuscitation Status FULL:Full Resuscitation Vital Signs & Weight: Vital Signs (12 hours) Temp Pulse Resp BP Pulse Ox 08/25/17 09:31 71 127/76 08/25/17 08:45 98.7 F 71 20 96 08/25/17 07:17 98.7 F 71 20 97 08/25/17 03:00 98.5 F 08/25/17 00:00 98.2 F Weight Admit Weight 129 lb 6.581 oz Weight 188 lb 0.869 oz Most Recent Monitor Data Heart Rate from ECG 67 NIBP 129/72 NIBP BP-Mean 90 Respiration from ECG 14 SpO2 96 I&O: 08/24/17 08/25/17 08/26/17 06:59 06:59 06:59 Intake Total 3749 3822 Output Total 1910 975 Balance 1839 3527 Result Diagrams: 08/25/17 03:30 08/26/17 05:21 Additional Labs: Accuchecks 08/25/17 08/24/17 08/24/17 04:31 20:57 15:57 POC Glucose 151 H 197 H 149 H Phys Exam - Physical Examination Constitutional: NAD HEENT: PERRLA, moist MMs, sclera anicteric Respiratory: no wheezing, no rales, no rhonchi Cardiovascular: RRR, no significant murmur, no rub Gastrointestinal: soft, positive bowel sounds Musculoskeletal: pulses present trace to 1+ b/l LE edema Neurological: moves all 4 limbs Psychiatric: normal affect, A&O x 3 Dx/Plan - Plan * hypertensive urgency/ emergency * significantly improved * maintained on telemetry as he has been just weaned off gtt c/o REIS * w/o hypertensive emergency * states that he often has this REIS when he is normotensive * specifically requests access to pain medications for his REIS "chest pain" which patient states "has always been back pain" for him during this hospitalization * still present and unchanged diet: as tolerated, cardiac activity: as tolerated dvt ppx if continued stability overnight, t/c d/c planning Review of Systems - Medications/Allergies Allergies/Adverse Reactions: Allergies Allergy/AdvReac Type Severity Reaction Status Date / Time iodine Allergy Verified 08/22/17 01:01 Medications: Current Medications Acetaminophen (Tylenol) 650 mg PO Q4H PRN PRN Reason: Headache/Fever or Pain Acetaminophen/Codeine Phosphate (Tylenol #3) 1 tab PO Q4H PRN PRN Reason: Mild Pain (1-3) Acetaminophen/Codeine Phosphate (Tylenol #3) 2 tab PO Q4H PRN PRN Reason: Moderate Pain (4-6) Last Admin: 08/24/17 16:57 Dose: 2 tab Hydrocodone Bitart/Acetaminophen ([place] 7.5/325) 2 tab PO Q4H PRN PRN Reason: Severe Pain (7-10) Last Admin: 08/23/17 02:20 Dose: 2 tab Aspirin (Aspirin Chewable) 81 mg PO DAILY [facility] Last Admin: 08/25/17 09:30 Dose: 81 mg Atorvastatin Calcium (Lipitor) 40 mg PO HS [facility] Last Admin: 08/24/17 20:58 Dose: 40 mg Carvedilol (Coreg) 50 mg PO BID [facility] Last Admin: 08/25/17 09:30 Dose: 50 mg Famotidine (Pepcid) 20 mg PO Q12HR [facility] Last Admin: 08/25/17 09:30 Dose: 20 mg Furosemide (Lasix) 20 mg PO DAILY [facility] Last Admin: 08/25/17 09:31 Dose: 20 mg Hydralazine HCl (Apresoline) 50 mg PO TID [facility] Last Admin: 08/25/17 09:31 Dose: 50 mg Lisinopril (Zestril) 20 mg PO BID [facility] Last Admin: 08/25/17 09:31 Dose: 20 mg Nifedipine (Procardia Xl) 90 mg PO DAILY [facility] Last Admin: 08/25/17 09:31 Dose: 90 mg Nitroglycerin (Nitrostat) 0.4 mg SL Q5MIN PRN PRN Reason: Chest Pain Ondansetron HCl (Zofran Odt) 4 mg PO Q6H PRN PRN Reason: Nausea/Vomiting Ondansetron HCl (Zofran) 4 mg IVP Q6H PRN PRN Reason: Nausea/Vomiting Last Admin: 08/24/17 10:50 Dose: 4 mg Sodium Chloride (Flush - Normal Saline) 10 ml IVF Q12HR [facility] Last Admin: 08/25/17 09:32 Dose: 10 ml Sodium Chloride (Flush - Normal Saline) 10 ml IVF PRN PRN PRN Reason: Saline Flush Tramadol HCl (Ultram) 50 mg PO Q6H PRN PRN Reason: Moderate Pain (4-6) Warfarin Sodium (Coumadin) 5 mg PO 1700 [facility] Last Admin: 08/24/17 16:55 Dose: 5 mg
[2017-08-25] MEDS: Warfarin Sodium 5 MG TAB PO SCH (18:03)
[2017-08-25] MEDS: Atorvastatin Calcium 40 MG TAB PO SCH (20:43)
[2017-08-26 05:55] LABS: INR-International Normal Ratio 1.1
[2017-08-26 06:05] LABS: Anion Gap 12 mmol/L (10-20); BUN (Urea Nitrogen) 20 mg/dL (8.4-25.7); Calc. Creatinine Clearance 102 mL/min (70-130); Calcium 8.2 mg/dL (7.8-10.44); Carbon Dioxide 21 mmol/L (23-31); Chloride 109 mmol/L (98-107); Estimated GFR-MDRD Greater than 90; Glucose 116 mg/dL (80-115); Potassium 3.6 mmol/L (3.5-5.1); Sodium 138 mmol/L (136-145)
[2017-08-26] MEDS: hydrALAZINE 25 MG TAB PO SCH ×2 (08:07→14:36)
[2017-08-26] MEDS: NIFEdipine XL 90 MG TAB PO SCH (08:07)
[2017-08-26] MEDS: Furosemide 20 MG TAB PO SCH (08:07)
[2017-08-26] MEDS: Lisinopril 20 MG TAB PO SCH (08:08)
[2017-08-26] MEDS: Carvedilol 25 MG TAB PO SCH (08:08)
[2017-08-26] MEDS: Famotidine 20 MG TAB PO SCH (08:08)
[2017-08-26] MEDS ORDERED: Warfarin Sodium 5 MG TAB PO SCH (11:15)
[2017-08-26 11:39] VITALS: TEMP 97.9
[2017-08-26 14:36] VITALS: BP 130/73
--- NOTE | 2017-08-27 11:01 | DIS ---
DISCHARGE DIAGNOSES: 1. Hypertensive heart disease. 2. History of moderate coronary artery disease. HISTORY OF PRESENT ILLNESS AND HOSPITAL COURSE: This is a 72-year-old - [place] male from [place], who is currently presenting with a chief complaint of chest pain. Please see the original history and physical for full details surrounding admission. Patient has a known history of coronary artery disease, CABG, hypertensive heart disease, and hypertension. During this hospitalization , he was found to have systolic blood pressures over 200 with diastolic blood pressures over 100. He was initially admitted to the Intensive Care Unit. Hypertension was controlled with IV nicardipine drip. At this time, the patient is being discharged on an oral antihypertensive regimen that is has adequately controlled his systolic and diastolic blood pressures over the last 24 hours. However, he still has intermittent chest pain. He was seen by Cardiology. He has a known history of coronary artery disease, status post CABG, underwent a left heart catheterization, which did not demonstrate any disease that would be amenable to stenting at this point in time. This was discussed with the patient at bedside as well. Plan for continued outpatient cardiac management The remainder of patient's chronic medical issues has been stable in this hospitalization. CONSULTATIONS: 1. Pulmonary Medicine. 2. Cardiology. MEDICATION RECONCILIATION: Please the EMR for full details by multiple changes to the patient's home antihypertensive regimen. Patient was on Coreg 50 mg p.o. b.i.d., Lasix 20 mg p.o. daily, hydralazine 50 mg p.o. t.i.d., lisinopril 20 mg p.o. b.i.d., nifedipine or Procardia-XL 90 mg p.o. daily. All prior antihypertensives have been discontinued and switched over to this regimen. The patient has also been started on atorvastatin 40 mg p.o. at bedtime, on p.r.n. tramadol as needed for short term duration to use for pain and as needed x3 days. DISCHARGE INSTRUCTIONS: Patient is asked to follow up closely with his outpatient team including his primary care provider, Cardiology, Pulmonary Medicine. PATIENT'S CONDITION AT DISCHARGE: At the time of discharge, patient's vital signs are stable. PHYSICAL EXAMINATION: VITAL SIGNS: Heart rate 61, blood pressure 130/75, respirations 18, satting 94 % on room air, temperature is 97.9. GENERAL: Patient is awake, alert, appropriate, oriented x3, no acute distress, lying in the hospital bed, able to answer questions and asked questions appropriately. HEENT: Slightly moist mucous membranes. Equal ocular motions are intact. Pupils are equal and reactive. CARDIOVASCULAR: S1, S2. No murmurs, rubs, or gallops. Pulses 2+ bilateral upper extremity. RESPIRATORY: Clear to auscultation. No overt wheezes, rales, or rhonchi. Limited anterior examination. ABDOMEN: Positive bowel sounds. Soft, nontender to palpation. MUSCULOSKELETAL: Moving all 4 extremities equally. No pitting pedal edema. SIGNIFICANT LABS AND IMAGING: During this hospitalization, on 08/25/2017, , hemoglobin 13.7, hematocrit 43.0, platelets 252. INR 1.1. Sodium 138, potassium 3.6, chloride 100, bicarbonate 21, BUN 20, creatinine 0.8, calcium 8.2 , glucose 116. On 08/22/2017, echocardiogram, left ventricular size was normal. Ejection fraction visually estimated at 50% to 55%, severe concentric left ventricular hypertrophy. The left atrium is moderately dilated. Structurally normal mitral valve. No evidence of mitral regurgitation. Structurally normal aortic valve with no significant stenosis or regurgitation. Please see the operative report for full details regarding his left heart catheterization. Thank you for asking me care for the patient. Greater than 30 minutes spent coordinating discharge with the patient. TIMOTHY
--- NOTE | 2017-08-29 13:20 | EKG ---
Test Reason : CP Blood Pressure : / mmHG Vent. Rate : 108 BPM Atrial Rate : 108 BPM P-R Int : 268 ms QRS Dur : 164 ms QT Int : 438 ms P-R-T Axes : 063 -87 092 degrees QTc Int : 586 ms AV dual-paced rhythm with prolonged AV conduction with occasional ventricular-paced complexes Abnormal ECG Confirmed by MARIO ALBERTO PERRY ([id number]), film or videotape editor CHUCKIE RENEE ([id number]) on 08/29/2017 1:20:20 PM Referred By: Confirmed By:MARIO ALBERTO PERRY
[2017-08-31 13:15] LABS: Dopamine 153 pg/mL (0-48); Epinephrine 128 pg/mL (0-62); Norepinephrine 2529 pg/mL (0-874)
--- NOTE | 2017-09-05 19:56 | EKG ---
Test Reason : Blood Pressure : / mmHG Vent. Rate : 085 BPM Atrial Rate : 085 BPM P-R Int : 306 ms QRS Dur : 160 ms QT Int : 448 ms P-R-T Axes : 091 -80 096 degrees QTc Int : 533 ms AV dual-paced rhythm with prolonged AV conduction Abnormal ECG Confirmed by DOROTHY BRAND ([id number]), copy editor SHAKA RITTER ([id number]) on 09/05/2017 7:55:18 PM Referred By: Confirmed By:DOROTHY BRAND
== END 2017-08-26 14:45 | DRG 280 ==
LOC: ERS 15:25 → EEVIPCON 08-22 00:04 → CCU 08-22 00:04 → 2SE 08-25 08:40
PROVIDERS: ADMIT Family Medicine; ATTEND Family Medicine
PROC: 02HV33Z Insertion of Infusion Device into Superior Vena Cava, Percutaneous Approach (ICD-10-PCS; principal; 2017-08-24)
PROC: 4A023N7 Measurement of Cardiac Sampling and Pressure, Left Heart, Percutaneous Approach (ICD-10-PCS; 2017-08-24)
PROC: B2111ZZ Fluoroscopy of Multiple Coronary Arteries using Low Osmolar Contrast (ICD-10-PCS; 2017-08-24)
PROC: B2181ZZ Fluoroscopy of Left Internal Mammary Bypass Graft using Low Osmolar Contrast (ICD-10-PCS; 2017-08-24)
PROC: B2151ZZ Fluoroscopy of Left Heart using Low Osmolar Contrast (ICD-10-PCS; 2017-08-24)
DX: I16.1 Hypertensive emergency (principal); I21.4 Non-ST elevation (NSTEMI) myocardial infarction; J96.01 Acute respiratory failure with hypoxia; I50.33 Acute on chronic diastolic (congestive) heart failure; I25.110 Atherosclerotic heart disease of native coronary artery with unstable angina pectoris; I16.0 Hypertensive urgency; I25.9 Chronic ischemic heart disease, unspecified; Z95.1 Presence of aortocoronary bypass graft; Z86.19 Personal history of other infectious and parasitic diseases; I25.2 Old myocardial infarction; E11.65 Type 2 diabetes mellitus with hyperglycemia; Z95.810 Presence of automatic (implantable) cardiac defibrillator; I11.0 Hypertensive heart disease with heart failure
CPT/HCPCS: 36415; 36416; 36556; 71045; 76942; 80048; 80053; 80061; 80306; 82384; 82553; 83735; 83880; 84100; 84484; 85025; 85610; 85730; 90471; 90682; 93005; 93010; 93306; 93458; 93798; 94760; 96365; 96366; 96368; 96375; 96376; 99152; 99153; C1769; G0008; G8978-GP-CJ; G8979-GP-CI; G8987-GO-CI; G8988-GO-CI; G8989-GO-CI; J0360; J1644; J1650; J1885; J1940; J2001; J2250; J2405; J3010; J3475; J7050; J7506; P9045; P9047; Q2036; S0028

== ENCOUNTER 2021-07-05 21:26 | Inpatient (IN) | payer OTHER ==
[~2021-07-05 21:26] MED LIST: Iopamidol 370 76% 100 ML VIAL ONE
[2021-07-05] MEDS ORDERED: Morphine 4 MG/ML VIAL ONE (22:11)
[2021-07-05] MEDS ORDERED: diphenhydrAMINE 50 MG/ML VIAL ONE (22:12)
[2021-07-05] MEDS ORDERED: methylPREDNISolone Sod Succ 40 MG VIAL ONE (22:12)
[2021-07-05] MEDS ORDERED: Cefepime 2 GM VIAL ONE (22:12)
[2021-07-05] MEDS ORDERED: Famotidine/PF 20 mg/2ml Vial ONE (22:12)
[2021-07-05] MEDS ORDERED: metroNIDAZOLE 250 MG TAB ONE (22:12)
[2021-07-05] MEDS ORDERED: metroNIDAZOLE 500 MG in Premix Bag 1 BAG IVPB SCH (22:30)
[2021-07-05] MEDS ORDERED: Vancomycin 1.5 GRAM/300 ML BAG 1.5 GM in Premix Bag 1 BAG IVPB SCH (22:30)
[2021-07-05 22:37] LABS: #Eosinphils 0.2 thou/uL (0.0-0.7); #Lymphocytes 0.8 thou/uL (1.20-3.40); #Neutrophils 5.2 thou/uL (1.40-6.50); %Basophils 0.1 % (0.0-1.0); %Eosinophils 2.4 % (0.0-10.0); %Lymphocytes 10.8 % (21.0-51.0); %Monocytes 14.1 % (0.0-10.0); %Neutrophils 72.7 % (42.0-75.0); Hemoglobin 10.7 g/dL (14.0-18.0); Mean Corpuscular HGB CONC 31.4 g/dL (32.0-36.0); Mean Corpuscular Hemoglobin 27.8 pg (27.0-31.0); Mean Corpuscular Volume 88.6 fL (78.0-98.0); Platelet Count 271 thou/uL (130-400); RBC Distribution Width 14.2 % (11.5-14.5); Red Blood Cell (RBC) Count 3.83 mill/uL (4.70-6.10); White Blood Cell (WBC) Count 7.2 thou/uL (4.8-10.8)
[2021-07-05 22:47] LABS: INR-International Normal Ratio 2.5; PTT 39.2 sec (22.9-36.1); Prothrombin Time 27.4 sec (12.0-14.7)
[2021-07-05 22:51] LABS: ALT (SGPT) 8 U/L (8-55); AST (SGOT) 11 U/L (5-34); Albumin 3.2 g/dL (3.4-4.8); Alkaline Phosphatase 124 U/L (40-110); Anion Gap 15 mmol/L (10-20); BUN (Urea Nitrogen) 23 mg/dL (8.4-25.7); Bilirubin, Total 0.4 mg/dL (0.2-1.2); Calc. Creatinine Clearance 0 mL/min (70-130); Calcium 8.5 mg/dL (7.8-10.44); Carbon Dioxide 25 mmol/L (23-31); Chloride 105 mmol/L (98-107); Globulin 3.7 g/dL (2.4-3.5); Glucose 94 mg/dL (83-110); Potassium 3.1 mmol/L (3.5-5.1); Protein, Total 6.9 g/dL (5.8-8.1); Sodium 142 mmol/L (136-145)
[2021-07-05 23:13] LABS: CKMB 1.4 ng/mL (0-6.6)
[2021-07-06] MEDS ORDERED: hydrALAZINE 20 MG/ML VIAL ONE (00:17)
[2021-07-06 02:07] LABS: SARS-CoV-2 NAA Rapid Test Not Detected (NotDetected)
[2021-07-06] MEDS: Dextrose 5 %-0.45 % NaCl 1,000 ML IV SCH ×2 (03:16→11:06)
[2021-07-06] MEDS ORDERED: Fentanyl 100 MCG/2 ML VIAL ONE (07:10)
[2021-07-06] MEDS ORDERED: SUGAMMADEX SODIUM 200 MG/2 ML VIAL ONE (07:55)
[2021-07-06] MEDS ORDERED: Rocuronium Bromide 10 MG/ML (10ML VIAL) ONE (08:00)
[2021-07-06] MEDS ORDERED: Ondansetron PF 4 MG/2 ML Vial ONE (08:00)
[2021-07-06] MEDS ORDERED: Dexamethasone 20 MG/5 ML VIAL ONE (08:00)
[2021-07-06] MEDS ORDERED: Lidocaine 1% PF 5 ML VIAL ONE (08:00)
[2021-07-06] MEDS ORDERED: PROPOFOL 200 MG/20 ML VIAL ONE (08:00)
[2021-07-06] MEDS ORDERED: Promethazine HCl 25 MG/ML VIAL IVPB PRN (08:43)
[2021-07-06] MEDS ORDERED: Promethazine HCl 25 MG/ML VIAL IM PRN (08:43)
[2021-07-06] MEDS ORDERED: Ondansetron HCl/PF 4 MG/2 ML Vial IVP PRN (08:43)
[2021-07-06] MEDS ORDERED: Xylocaine 1% w/ Epi 1:100K 10 ML VIAL ONE (09:29)
[2021-07-06] MEDS ORDERED: Ondansetron PF 4 MG/2 ML Vial IVP PRN (09:48)
[2021-07-06] MEDS ORDERED: Enoxaparin Sodium 40 MG/0.4 ML SYRINGE SC SCH (10:00)
[2021-07-06] MEDS ORDERED: HYDROmorphone 0.5 MG/0.5 ML SYRINGE SLOW IVP SCH (10:00)
[2021-07-06] MEDS: hydrALAZINE 20 MG/ML VIAL SLOW IVP PRN ×2 (10:24→21:55)
[2021-07-06] MEDS ORDERED: Heparin 1,000 UNITS/ML VIAL ONE (10:49)
[2021-07-06] MEDS: Labetalol HCl 100 MG/20 ML VIAL SLOW IVP PRN (12:59)
[2021-07-06] MEDS: Morphine 4 MG/ML VIAL SLOW IVP PRN ×3 (12:59→22:52)
[2021-07-06 13:00] LABS: Anion Gap 20 mmol/L (10-20); BUN (Urea Nitrogen) 31 mg/dL (8.4-25.7); Calc. Creatinine Clearance 31 mL/min (70-130); Calcium 9.2 mg/dL (7.8-10.44); Carbon Dioxide 17 mmol/L (23-31); Chloride 110 mmol/L (98-107); Glucose 193 mg/dL (83-110); Potassium 4.1 mmol/L (3.5-5.1); Sodium 143 mmol/L (136-145)
[2021-07-06] MEDS: Clindamycin/D5W 900 MG in Premix Bag 1 BAG IVPB SCH ×2 (13:05→21:25)
[2021-07-06 13:55] LABS: CKMB 2.8 ng/mL (0-6.6)
[2021-07-06 14:10] LABS: Hemoglobin A1c 5.6 % (4.0-6.0)
[2021-07-06 23:03] LABS: Bacteria/HPF None Seen HPF (None Seen); Bilirubin Negative (Negative); Blood, Urine 1+ (Negative); Clarity Clear (Clear); Glucose, Urine (Dipstick) 50 mg/dL (Negative); Ketone, Urine Negative (Negative); Leukocyte Negative Leu/uL (Negative); Nitrite Negative (Negative); Protein, Urine (Dipstick) 300 mg/dL (Neg-Trace); RBC/HPF 0-3 HPF (0-3); Specific Gravity, Urine 1.035 (1.002-1.036); Squamous Epithelial None Seen HPF (0-3); Urobilinogen Normal mg/dL (Less than 2); WBC/HPF 0-3 HPF (0-3)
[2021-07-06 23:04] LABS: Urine Culture Reflex No No
[2021-07-06 23:16] LABS: Creatinine, Urine 105.81 mg/dL (63-166); Sodium, Urine Less than 20 mmol/L (Not Available)
[2021-07-07] MEDS ORDERED: Chloraseptic Spray 180 ml Bottle PO PRN (03:26)
[2021-07-07] MEDS: Clindamycin/D5W 900 MG in Premix Bag 1 BAG IVPB SCH ×3 (05:27→21:13)
[2021-07-07] MEDS: hydrALAZINE 20 MG/ML VIAL SLOW IVP PRN (05:36)
[2021-07-07] MEDS: Morphine 4 MG/ML VIAL SLOW IVP PRN (08:07)
[2021-07-07] MEDS ORDERED: Warfarin Sodium 5 MG TAB PO SCH (08:15)
[2021-07-07] MEDS ORDERED: Warfarin Sodium 2.5 MG TAB PO SCH ×2 (08:15→17:00)
[2021-07-07] MEDS ORDERED: Lisinopril 2.5 MG TAB PO SCH (09:00)
[2021-07-07] MEDS ORDERED: Ascorbic Acid 500 mg Chewable Tablet PO SCH (09:00)
[2021-07-07] MEDS ORDERED: Furosemide 20 MG TAB PO SCH (09:00)
[2021-07-07] MEDS ORDERED: Enoxaparin Sodium 40 MG/0.4 ML SYRINGE SC SCH (09:00)
[2021-07-07] MEDS ORDERED: Lisinopril 20 MG TAB PO SCH (09:00)
[2021-07-07] MEDS ORDERED: Morphine 2 MG/ML VIAL SLOW IVP SCH (09:45)
[2021-07-07] MEDS ORDERED: Morphine 4 MG/ML VIAL SLOW IVP SCH (10:00)
[2021-07-07] MEDS: hydrALAZINE 25 MG TAB PO SCH ×3 (10:24→21:04)
[2021-07-07] MEDS: Carvedilol 25 MG TAB PO SCH ×2 (10:24→21:03)
[2021-07-07 11:14] LABS: Band 3 % (5-11); Hemoglobin 12.1 g/dL (14.0-18.0); Lymphocytes 7 % (21-51); MDiff Complete? YES; Mean Corpuscular HGB CONC 33.4 g/dL (32.0-36.0); Mean Corpuscular Hemoglobin 28.7 pg (27.0-31.0); Mean Corpuscular Volume 85.9 fL (78.0-98.0); Mean Platelet Volume 7.5 fL (7.4-10.4); Neutrophil 90 % (42-75); Platelet Count 260 thou/uL (130-400); Platelet Morphology Comment Appears Adequate; RBC Distribution Width 14.5 % (11.5-14.5); Red Blood Cell (RBC) Count 4.23 mill/uL (4.70-6.10); Vacuoles SLIGHT
[2021-07-07 11:16] LABS: Anion Gap 20 mmol/L (10-20); BUN (Urea Nitrogen) 38 mg/dL (8.4-25.7); Calc. Creatinine Clearance 24 mL/min (70-130); Carbon Dioxide 17 mmol/L (23-31); Chloride 108 mmol/L (98-107); Glucose 143 mg/dL (83-110); Potassium 3.5 mmol/L (3.5-5.1); Sodium 141 mmol/L (136-145)
[2021-07-07 11:23] LABS: CKMB 3.9 ng/mL (0-6.6)
[2021-07-07] MEDS ORDERED: Lactated Ringer's 1,000 ML IV SCH ×2 (14:45→18:12)
[2021-07-07] MEDS ORDERED: NIFEdipine XL 60 MG TAB PO SCH (17:15)
[2021-07-07] MEDS ORDERED: Aspirin 81 mg Enteric Coated Tablet PO SCH (17:15)
[2021-07-07 19:50] LABS: Prothrombin Time 61.7 sec (12.0-14.7)
[2021-07-07 19:51] LABS: PTT 65.9 sec (22.9-36.1)
[2021-07-07 19:53] LABS: INR-International Normal Ratio 6.9
[2021-07-07] MEDS: Vancomycin 1.5 GRAM/300 ML BAG 1.5 GM in Premix Bag 1 BAG IVPB SCH (21:03)
[2021-07-07] MEDS: Atorvastatin Calcium 40 MG TAB PO SCH (21:05)
[2021-07-08] MEDS: Clindamycin/D5W 900 MG in Premix Bag 1 BAG IVPB SCH ×3 (05:03→21:50)
[2021-07-08 05:20] LABS: #Lymphocytes 0.5 thou/uL (1.20-3.40); #Monocytes 0.9 thou/uL (0.11-0.59); #Neutrophils 9.1 thou/uL (1.40-6.50); %Eosinophils 0.1 % (0.0-10.0); %Lymphocytes 5.1 % (21.0-51.0); %Monocytes 8.9 % (0.0-10.0); Hemoglobin 10.6 g/dL (14.0-18.0); Mean Corpuscular HGB CONC 33.1 g/dL (32.0-36.0); Mean Corpuscular Hemoglobin 28.6 pg (27.0-31.0); Mean Corpuscular Volume 86.6 fL (78.0-98.0); Mean Platelet Volume 7.6 fL (7.4-10.4); Platelet Count 229 thou/uL (130-400); RBC Distribution Width 14.6 % (11.5-14.5); White Blood Cell (WBC) Count 10.6 thou/uL (4.8-10.8)
[2021-07-08 05:36] LABS: INR-International Normal Ratio 7.5
[2021-07-08 05:42] LABS: Anion Gap 18 mmol/L (10-20); BUN (Urea Nitrogen) 47 mg/dL (8.4-25.7); Calc. Creatinine Clearance 21 mL/min (70-130); Calcium 8.8 mg/dL (7.8-10.44); Carbon Dioxide 17 mmol/L (23-31); Cardiac Risk 3.7 (Less than 4.5); Chloride 107 mmol/L (98-107); Cholesterol 110 mg/dl (< 200 Desired); Glucose 113 mg/dL (83-110); HDL Cholesterol 30 mg/dL (>60 Neg Risk); LDL Cholesterol, Calculated 59 mg/dL; Potassium 3.2 mmol/L (3.5-5.1); Sodium 139 mmol/L (136-145); Triglycerides 104 mg/dL (Less than 150)
[2021-07-08 06:00] LABS: Creatinine, Urine 117.88 mg/dL (63-166)
[2021-07-08] MEDS: Aspirin 81 mg Enteric Coated Tablet PO SCH (10:34)
[2021-07-08] MEDS: hydrALAZINE 25 MG TAB PO SCH ×3 (10:34→20:48)
[2021-07-08] MEDS: Ascorbic Acid 500 mg Chewable Tablet PO SCH (10:34)
[2021-07-08] MEDS: Carvedilol 25 MG TAB PO SCH ×2 (10:34→20:47)
[2021-07-08] MEDS: Vancomycin 1.5 GRAM/300 ML BAG 1.5 GM in Premix Bag 1 BAG IVPB SCH ×2 (10:35→20:42)
[2021-07-08] MEDS: Morphine 4 MG/ML VIAL SLOW IVP PRN ×3 (10:36→20:49)
[2021-07-08] MEDS ORDERED: Potassium Chloride 20 MEQ TAB PO SCH (11:00)
[2021-07-08] MEDS ORDERED: Phytonadione 10 MG/ML AMP SC SCH (11:30)
[2021-07-08] MEDS: Lactated Ringer's 1,000 ML IV SCH ×2 (12:50→20:53)
[2021-07-08 14:03] LABS: Magnesium 1.9 mg/dL (1.6-2.6)
[2021-07-08] MEDS ORDERED: Fentanyl 100 MCG/2 ML VIAL SLOW IVP PRN (15:19)
[2021-07-08] MEDS: Atorvastatin Calcium 40 MG TAB PO SCH (20:48)
[2021-07-08] MEDS: hydrOXYzine 25 MG TAB PO PRN (20:59)
[2021-07-09] MEDS: Clindamycin/D5W 900 MG in Premix Bag 1 BAG IVPB SCH ×3 (05:53→21:07)
[2021-07-09] MEDS: Lactated Ringer's 1,000 ML IV SCH (06:10)
[2021-07-09 06:14] LABS: #Lymphocytes 0.8 thou/uL (1.20-3.40); #Monocytes 0.9 thou/uL (0.11-0.59); #Neutrophils 8.1 thou/uL (1.40-6.50); %Basophils 0.3 % (0.0-1.0); %Eosinophils 0.4 % (0.0-10.0); %Lymphocytes 7.8 % (21.0-51.0); %Monocytes 9.4 % (0.0-10.0); %Neutrophils 82.1 % (42.0-75.0); Mean Corpuscular HGB CONC 33.4 g/dL (32.0-36.0); Mean Corpuscular Hemoglobin 28.9 pg (27.0-31.0); Mean Corpuscular Volume 86.6 fL (78.0-98.0); Mean Platelet Volume 7.5 fL (7.4-10.4); Platelet Count 261 thou/uL (130-400); RBC Distribution Width 14.5 % (11.5-14.5); Red Blood Cell (RBC) Count 3.46 mill/uL (4.70-6.10); White Blood Cell (WBC) Count 9.9 thou/uL (4.8-10.8)
[2021-07-09 06:27] LABS: INR-International Normal Ratio 2.6; PTT 51.6 sec (22.9-36.1)
[2021-07-09 06:35] LABS: Anion Gap 23 mmol/L (10-20); BUN (Urea Nitrogen) 55 mg/dL (8.4-25.7); Calc. Creatinine Clearance 17 mL/min (70-130); Calcium 8.5 mg/dL (7.8-10.44); Carbon Dioxide 16 mmol/L (23-31); Chloride 105 mmol/L (98-107); Glucose 115 mg/dL (83-110); Potassium 3.3 mmol/L (3.5-5.1); Sodium 141 mmol/L (136-145)
[2021-07-09] MEDS: hydrALAZINE 25 MG TAB PO SCH ×3 (09:37→21:07)
[2021-07-09] MEDS: Aspirin 81 mg Enteric Coated Tablet PO SCH (09:37)
[2021-07-09] MEDS: Vancomycin 1.5 GRAM/300 ML BAG 1.5 GM in Premix Bag 1 BAG IVPB SCH ×2 (09:37→12:54)
[2021-07-09] MEDS: Carvedilol 25 MG TAB PO SCH ×2 (09:38→21:06)
[2021-07-09] MEDS: Morphine 4 MG/ML VIAL SLOW IVP PRN ×3 (09:38→21:13)
[2021-07-09] MEDS: Ascorbic Acid 500 mg Chewable Tablet PO SCH (09:38)
[2021-07-09] MEDS ORDERED: Potassium Chloride 20 MEQ TAB PO SCH (11:00)
[2021-07-09] MEDS ORDERED: Sodium Bicarbonate 150 MEQ in Dextrose 5% in Water 1,000 ML IV SCH (11:00)
[2021-07-09] MEDS ORDERED: Polyethylene Glycol 3350 17 GM Packet PO PRN (15:11)
[2021-07-09] MEDS ORDERED: Polyethylene Glycol 3350 17 GM Packet PO SCH (15:15)
[2021-07-09 16:57] LABS: Vancomycin, Random 59.6 ug/mL (See Comment)
[2021-07-09] MEDS ORDERED: Warfarin Sodium 5 MG TAB PO SCH (17:00)
[2021-07-09 17:41] LABS: Bacteria/HPF None Seen HPF (None Seen); Bilirubin Negative (Negative); Blood, Urine Trace (Negative); Clarity Clear (Clear); Glucose, Urine (Dipstick) Normal (Negative); Ketone, Urine Negative (Negative); Leukocyte Negative Leu/uL (Negative); Nitrite Negative (Negative); Protein, Urine (Dipstick) 200 mg/dL (Neg-Trace); RBC/HPF 0-3 HPF (0-3); Specific Gravity, Urine 1.018 (1.002-1.036); Squamous Epithelial 0-3 HPF (0-3); Urobilinogen Normal mg/dL (Less than 2); WBC/HPF 0-3 HPF (0-3); pH, Urine 5.5 (5.0-9.0)
[2021-07-09 18:09] LABS: Sodium, Urine 63 mmol/L (Not Available); Urea Nitrogen, Random Urine 378 mg/dl
[2021-07-09] MEDS: Atorvastatin Calcium 40 MG TAB PO SCH (21:08)
[2021-07-10] MEDS: hydrALAZINE 20 MG/ML VIAL SLOW IVP PRN (03:50)
[2021-07-10] MEDS: Morphine 4 MG/ML VIAL SLOW IVP PRN ×3 (03:55→21:38)
[2021-07-10 04:24] LABS: INR-International Normal Ratio 1.8; PTT 48.4 sec (22.9-36.1); Prothrombin Time 21.6 sec (12.0-14.7)
[2021-07-10 04:27] LABS: Albumin 2.9 g/dL (3.4-4.8); Anion Gap 15 mmol/L (10-20); BUN (Urea Nitrogen) 54 mg/dL (8.4-25.7); Calc. Creatinine Clearance 18 mL/min (70-130); Calcium 8.1 mg/dL (7.8-10.44); Carbon Dioxide 24 mmol/L (23-31); Chloride 105 mmol/L (98-107); Glucose 108 mg/dL (83-110); Phosphorus 3.9 mg/dL (2.3-4.7); Potassium 3.3 mmol/L (3.5-5.1); Sodium 141 mmol/L (136-145)
[2021-07-10] MEDS: Clindamycin/D5W 900 MG in Premix Bag 1 BAG IVPB SCH ×3 (06:03→21:38)
[2021-07-10] MEDS: hydrALAZINE 25 MG TAB PO SCH ×3 (07:46→22:50)
[2021-07-10] MEDS: Aspirin 81 mg Enteric Coated Tablet PO SCH (10:26)
[2021-07-10] MEDS: Ascorbic Acid 500 mg Chewable Tablet PO SCH (10:26)
[2021-07-10] MEDS: Carvedilol 25 MG TAB PO SCH ×2 (10:26→21:37)
[2021-07-10] MEDS ORDERED: Furosemide 40 MG/4 ML VIAL SLOW IVP SCH (13:00)
[2021-07-10] MEDS ORDERED: Potassium Chloride 20 MEQ TAB PO SCH (17:00)
[2021-07-10] MEDS ORDERED: Sodium Bicarbonate 150 MEQ in Dextrose 5% in Water 1,000 ML IV SCH (17:32)
[2021-07-10] MEDS: Heparin 5,000 UNITS/ML VIAL SC SCH (21:37)
[2021-07-10] MEDS: Atorvastatin Calcium 40 MG TAB PO SCH (21:37)
[2021-07-11] MEDS: Morphine 4 MG/ML VIAL SLOW IVP PRN ×4 (02:53→19:29)
[2021-07-11] MEDS: Clindamycin/D5W 900 MG in Premix Bag 1 BAG IVPB SCH ×3 (05:27→22:37)
[2021-07-11] MEDS: hydrALAZINE 25 MG TAB PO SCH ×3 (05:27→22:36)
[2021-07-11 06:27] LABS: Anion Gap 20 mmol/L (10-20); BUN (Urea Nitrogen) 47 mg/dL (8.4-25.7); Calc. Creatinine Clearance 22 mL/min (70-130); Calcium 8.3 mg/dL (7.8-10.44); Carbon Dioxide 21 mmol/L (23-31); Chloride 103 mmol/L (98-107); Glucose 132 mg/dL (83-110); Phosphorus 3.4 mg/dL (2.3-4.7); Potassium 3.5 mmol/L (3.5-5.1); Sodium 140 mmol/L (136-145)
[2021-07-11 09:00] LABS: Magnesium 1.7 mg/dL (1.6-2.6)
[2021-07-11] MEDS: Aspirin 81 mg Enteric Coated Tablet PO SCH (09:31)
[2021-07-11] MEDS: Heparin 5,000 UNITS/ML VIAL SC SCH ×2 (09:31→22:31)
[2021-07-11] MEDS: Carvedilol 25 MG TAB PO SCH ×2 (09:31→22:37)
[2021-07-11] MEDS: Ascorbic Acid 500 mg Chewable Tablet PO SCH (09:31)
[2021-07-11 13:13] LABS: Urine Total Volume 1800 mL (250-2400)
[2021-07-11] MEDS ORDERED: Furosemide 40 MG/4 ML VIAL SLOW IVP SCH (13:45)
[2021-07-11 13:46] LABS: 24 Hr Creatinine 858.6 mg/24 hr (950-2490); Creatinine, Urine 47.7 mg/dL (63-166); Protein - 24 Hr 3276 mg/24 hr (Less than 300); Protein, Urine 182 mg/dL (1-14)
[2021-07-11 15:54] LABS: Vancomycin, Random 39.9 ug/mL (See Comment)
[2021-07-11] MEDS: Atorvastatin Calcium 40 MG TAB PO SCH (22:37)
[2021-07-12] MEDS: Morphine 4 MG/ML VIAL SLOW IVP PRN ×4 (01:13→19:32)
[2021-07-12 05:28] LABS: Albumin 2.8 g/dL (3.4-4.8); Anion Gap 19 mmol/L (10-20); BUN (Urea Nitrogen) 43 mg/dL (8.4-25.7); BUN/Creatinine Ratio 14.73; Calc. Creatinine Clearance 24 mL/min (70-130); Calcium 8.6 mg/dL (7.8-10.44); Carbon Dioxide 18 mmol/L (23-31); Chloride 105 mmol/L (98-107); Glucose 107 mg/dL (83-110); Phosphorus 3.4 mg/dL (2.3-4.7); Potassium 3.9 mmol/L (3.5-5.1); Sodium 138 mmol/L (136-145)
[2021-07-12] MEDS: hydrALAZINE 25 MG TAB PO SCH ×4 (06:20→23:03)
[2021-07-12] MEDS: Clindamycin/D5W 900 MG in Premix Bag 1 BAG IVPB SCH ×3 (06:20→23:04)
[2021-07-12] MEDS: Carvedilol 25 MG TAB PO SCH ×2 (08:56→23:04)
[2021-07-12] MEDS: Aspirin 81 mg Enteric Coated Tablet PO SCH (08:56)
[2021-07-12] MEDS: Sodium Bicarbonate Tab 325 MG TAB PO SCH ×4 (08:56→23:03)
[2021-07-12] MEDS: Torsemide 20 MG TAB PO SCH (08:56)
[2021-07-12] MEDS: Ascorbic Acid 500 mg Chewable Tablet PO SCH (08:56)
[2021-07-12] MEDS: Heparin 5,000 UNITS/ML VIAL SC SCH ×2 (08:57→23:03)
[2021-07-12] MEDS ORDERED: Fentanyl 100 MCG/2 ML VIAL ONE ×2 (10:06→12:45)
[2021-07-12] MEDS ORDERED: Famotidine/PF 20 mg/2ml Vial ONE (10:06)
[2021-07-12] MEDS ORDERED: SUGAMMADEX SODIUM 200 MG/2 ML VIAL ONE (10:06)
[2021-07-12] MEDS ORDERED: PROPOFOL 200 MG/20 ML VIAL ONE (11:32)
[2021-07-12] MEDS ORDERED: ePHEDrine 50 MG/ML VIAL ONE (11:32)
[2021-07-12] MEDS ORDERED: Glycopyrrolate 0.2 MG/ML 5 ML SYRINGE ONE (11:32)
[2021-07-12] MEDS ORDERED: Rocuronium Bromide 10 MG/ML (10ML VIAL) ONE (11:32)
[2021-07-12] MEDS ORDERED: Ondansetron PF 4 MG/2 ML Vial ONE (11:32)
[2021-07-12] MEDS ORDERED: Metoclopramide HCl 10 MG/2 ML VIAL ONE (11:32)
[2021-07-12] MEDS ORDERED: Naloxone HCl 0.4 mg/ml Vial ONE (11:32)
[2021-07-12] MEDS ORDERED: PHENYLEPHRINE-NS 100 MCG/ML 10 ML SYRINGE ONE (11:32)
[2021-07-12] MEDS ORDERED: Lidocaine 1% PF 5 ML VIAL ONE (11:32)
[2021-07-12 16:52] LABS: SARS-CoV-2 PCR by NAA Not Detected (NotDetected)
[2021-07-12] MEDS: Atorvastatin Calcium 40 MG TAB PO SCH (23:04)
[2021-07-13] MEDS: Morphine 4 MG/ML VIAL SLOW IVP PRN ×4 (00:35→18:21)
[2021-07-13] MEDS: hydrALAZINE 25 MG TAB PO SCH ×3 (05:08→21:03)
[2021-07-13] MEDS: Clindamycin/D5W 900 MG in Premix Bag 1 BAG IVPB SCH ×3 (05:08→22:03)
[2021-07-13 05:25] LABS: Hemoglobin 9.8 g/dL (14.0-18.0); Mean Corpuscular HGB CONC 31.8 g/dL (32.0-36.0); Mean Corpuscular Hemoglobin 27.6 pg (27.0-31.0); Mean Corpuscular Volume 86.9 fL (78.0-98.0); Mean Platelet Volume 7.7 fL (7.4-10.4); Platelet Count 233 thou/uL (130-400); RBC Distribution Width 15.2 % (11.5-14.5); Red Blood Cell (RBC) Count 3.54 mill/uL (4.70-6.10); White Blood Cell (WBC) Count 7.5 thou/uL (4.8-10.8)
[2021-07-13 05:56] LABS: Albumin 3.1 g/dL (3.4-4.8); Anion Gap 19 mmol/L (10-20); BUN (Urea Nitrogen) 43 mg/dL (8.4-25.7); BUN/Creatinine Ratio 15.25; Calc. Creatinine Clearance 25 mL/min (70-130); Calcium 8.6 mg/dL (7.8-10.44); Carbon Dioxide 22 mmol/L (23-31); Chloride 102 mmol/L (98-107); Glucose 118 mg/dL (83-110); Phosphorus 3.6 mg/dL (2.3-4.7); Potassium 3.8 mmol/L (3.5-5.1); Sodium 139 mmol/L (136-145)
[2021-07-13 05:57] LABS: Iron 37 ug/dL (65-175); Iron Binding Capacity, Total 146 mcg/dL (261-462)
[2021-07-13] MEDS: Ascorbic Acid 500 mg Chewable Tablet PO SCH (10:28)
[2021-07-13] MEDS: Torsemide 20 MG TAB PO SCH (10:28)
[2021-07-13] MEDS: Aspirin 81 mg Enteric Coated Tablet PO SCH (10:28)
[2021-07-13] MEDS: Heparin 5,000 UNITS/ML VIAL SC SCH ×2 (10:28→21:09)
[2021-07-13] MEDS: Sodium Bicarbonate Tab 325 MG TAB PO SCH ×3 (10:28→21:03)
[2021-07-13] MEDS: Carvedilol 25 MG TAB PO SCH ×2 (10:28→21:04)
[2021-07-13] MEDS: EPOETIN ALFA-EPBX (ESRD) 10,000 UNIT/ML VIAL SC SCH (10:30)
[2021-07-13] MEDS ORDERED: Saccharomyces boulardii 250 MG CAP PO SCH (15:30)
[2021-07-13] MEDS: Labetalol HCl 100 MG/20 ML VIAL SLOW IVP PRN (18:22)
[2021-07-13] MEDS: Atorvastatin Calcium 40 MG TAB PO SCH (21:03)
[2021-07-14] MEDS: Morphine 4 MG/ML VIAL SLOW IVP PRN ×4 (05:03→21:07)
[2021-07-14] MEDS: hydrALAZINE 25 MG TAB PO SCH ×3 (05:05→21:03)
[2021-07-14] MEDS: Clindamycin/D5W 900 MG in Premix Bag 1 BAG IVPB SCH ×3 (05:05→21:08)
[2021-07-14 06:43] LABS: Anion Gap 18 mmol/L (10-20); BUN (Urea Nitrogen) 41 mg/dL (8.4-25.7); BUN/Creatinine Ratio 15.36; Calc. Creatinine Clearance 26 mL/min (70-130); Calcium 8.9 mg/dL (7.8-10.44); Carbon Dioxide 21 mmol/L (23-31); Chloride 104 mmol/L (98-107); Glucose 111 mg/dL (83-110); Phosphorus 3.8 mg/dL (2.3-4.7); Potassium 3.9 mmol/L (3.5-5.1); Sodium 139 mmol/L (136-145)
[2021-07-14] MEDS: Sodium Bicarbonate Tab 325 MG TAB PO SCH ×3 (08:07→21:02)
[2021-07-14] MEDS: Aspirin 81 mg Enteric Coated Tablet PO SCH (08:07)
[2021-07-14] MEDS: Heparin 5,000 UNITS/ML VIAL SC SCH ×2 (08:07→21:02)
[2021-07-14] MEDS: Carvedilol 25 MG TAB PO SCH ×2 (08:07→21:02)
[2021-07-14] MEDS: Saccharomyces boulardii 250 MG CAP PO SCH (08:08)
[2021-07-14] MEDS: Torsemide 20 MG TAB PO SCH (08:08)
[2021-07-14] MEDS: Ascorbic Acid 500 mg Chewable Tablet PO SCH (08:08)
[2021-07-14] MEDS: Atorvastatin Calcium 40 MG TAB PO SCH (21:02)
[2021-07-15] MEDS: Labetalol HCl 100 MG/20 ML VIAL SLOW IVP PRN ×2 (03:12→14:52)
[2021-07-15] MEDS: hydrOXYzine 25 MG TAB PO PRN (03:13)
[2021-07-15] MEDS: hydrALAZINE 25 MG TAB PO SCH ×3 (05:11→21:20)
[2021-07-15] MEDS: Clindamycin/D5W 900 MG in Premix Bag 1 BAG IVPB SCH ×2 (05:11→14:49)
[2021-07-15] MEDS ORDERED: hydrALAZINE 25 MG TAB PO SCH (08:15)
[2021-07-15] MEDS: Sodium Bicarbonate Tab 325 MG TAB PO SCH ×3 (09:08→19:18)
[2021-07-15] MEDS: Carvedilol 25 MG TAB PO SCH ×2 (09:09→19:18)
[2021-07-15] MEDS: Saccharomyces boulardii 250 MG CAP PO SCH (09:09)
[2021-07-15] MEDS: Aspirin 81 mg Enteric Coated Tablet PO SCH (09:09)
[2021-07-15] MEDS: Torsemide 20 MG TAB PO SCH (09:09)
[2021-07-15] MEDS: Ascorbic Acid 500 mg Chewable Tablet PO SCH (09:09)
[2021-07-15] MEDS: Heparin 5,000 UNITS/ML VIAL SC SCH ×2 (09:09→19:18)
[2021-07-15] MEDS: Morphine 4 MG/ML VIAL SLOW IVP PRN ×3 (09:10→19:17)
[2021-07-15 11:05] LABS: Albumin 3.3 g/dL (3.4-4.8); Anion Gap 17 mmol/L (10-20); BUN (Urea Nitrogen) 44 mg/dL (8.4-25.7); BUN/Creatinine Ratio 15.88; Calc. Creatinine Clearance 25 mL/min (70-130); Calcium 9.1 mg/dL (7.8-10.44); Carbon Dioxide 26 mmol/L (23-31); Chloride 100 mmol/L (98-107); Glucose 114 mg/dL (83-110); Phosphorus 3.6 mg/dL (2.3-4.7); Potassium 3.6 mmol/L (3.5-5.1); Sodium 139 mmol/L (136-145)
[2021-07-15] MEDS ORDERED: NIFEdipine XL 30 MG TAB PO SCH (11:45)
[2021-07-15] MEDS ORDERED: Piperacillin/Tazobactam 3.375 GM in Sodium Chloride 0.9% 100 ML IVPB SCH (16:30)
[2021-07-15] MEDS: Atorvastatin Calcium 40 MG TAB PO SCH (19:18)
[2021-07-15] MEDS: Piperacillin/Tazobactam 3.375 GM in Sodium Chloride 0.9% 100 ML IVPB SCH (21:20)
[2021-07-15] MEDS ORDERED: HYDROcodone/Acetaminophen 10/325 mg Tablet PO SCH (21:42)
[2021-07-16 05:40] LABS: Albumin 2.9 g/dL (3.4-4.8); Anion Gap 19 mmol/L (10-20); BUN (Urea Nitrogen) 42 mg/dL (8.4-25.7); BUN/Creatinine Ratio 15.38; Calc. Creatinine Clearance 25 mL/min (70-130); Calcium 8.5 mg/dL (7.8-10.44); Carbon Dioxide 24 mmol/L (23-31); Chloride 104 mmol/L (98-107); Glucose 113 mg/dL (83-110); Phosphorus 3.4 mg/dL (2.3-4.7); Sodium 142 mmol/L (136-145)
[2021-07-16] MEDS: Piperacillin/Tazobactam 3.375 GM in Sodium Chloride 0.9% 100 ML IVPB SCH ×2 (05:58→16:24)
[2021-07-16] MEDS: Morphine 4 MG/ML VIAL SLOW IVP PRN ×4 (05:58→20:39)
[2021-07-16] MEDS: hydrALAZINE 25 MG TAB PO SCH ×3 (05:58→20:38)
[2021-07-16 08:26] LABS: Hemoglobin 9.2 g/dL (14.0-18.0); Mean Corpuscular HGB CONC 30.9 g/dL (32.0-36.0); Mean Corpuscular Hemoglobin 27.6 pg (27.0-31.0); Mean Corpuscular Volume 89.5 fL (78.0-98.0); Mean Platelet Volume 9.3 fL (7.4-10.4); Platelet Count 211 thou/uL (130-400); RBC Distribution Width 17.7 % (11.5-14.5); Red Blood Cell (RBC) Count 3.34 mill/uL (4.70-6.10); White Blood Cell (WBC) Count 8.6 thou/uL (4.8-10.8)
[2021-07-16] MEDS: Ascorbic Acid 500 mg Chewable Tablet PO SCH (08:40)
[2021-07-16] MEDS: Saccharomyces boulardii 250 MG CAP PO SCH (08:41)
[2021-07-16] MEDS: Sodium Bicarbonate Tab 325 MG TAB PO SCH ×3 (08:41→20:39)
[2021-07-16] MEDS: Torsemide 20 MG TAB PO SCH (08:41)
[2021-07-16] MEDS: Aspirin 81 mg Enteric Coated Tablet PO SCH (08:41)
[2021-07-16] MEDS: Carvedilol 25 MG TAB PO SCH ×2 (08:41→20:39)
[2021-07-16] MEDS: Heparin 5,000 UNITS/ML VIAL SC SCH ×2 (08:42→20:43)
[2021-07-16 08:59] LABS: Anion Gap 21 mmol/L (10-20); BUN (Urea Nitrogen) 45 mg/dL (8.4-25.7); Calc. Creatinine Clearance 19 mL/min (70-130); Calcium 8.5 mg/dL (7.8-10.44); Carbon Dioxide 20 mmol/L (23-31); Chloride 107 mmol/L (98-107); Glucose 142 mg/dL (83-110); Potassium 4.6 mmol/L (3.5-5.1); Sodium 143 mmol/L (136-145)
[2021-07-16 10:45] LABS: Band 1 % (5-11); Eosinophils 1 % (0-10); Hypochromia SLIGHT = 6-15 cells (100X) (0-5/hpf); Lymphocytes 12 % (21-51); MDiff Complete? YES; Monocytes 14 % (0-10); Neutrophil 72 % (42-75); Platelet Morphology Comment Appears Adequate; Polychromasia SLIGHT = 2-3 cells (100X) (0-2/hpf); Schistocytes SLIGHT = 2-5 cells (100X) (0-1/hpf)
[2021-07-16 18:34] LABS: Creatinine, Urine 68.76 mg/dL (63-166)
[2021-07-16] MEDS: Atorvastatin Calcium 40 MG TAB PO SCH (20:39)
[2021-07-17] MEDS: Morphine 4 MG/ML VIAL SLOW IVP PRN ×3 (04:33→20:25)
[2021-07-17] MEDS: Piperacillin/Tazobactam 3.375 GM in Sodium Chloride 0.9% 100 ML IVPB SCH ×2 (04:33→17:30)
[2021-07-17] MEDS: hydrALAZINE 25 MG TAB PO SCH ×3 (05:53→20:28)
[2021-07-17] MEDS: Heparin 5,000 UNITS/ML VIAL SC SCH ×2 (09:07→20:17)
[2021-07-17] MEDS: Carvedilol 25 MG TAB PO SCH ×2 (09:07→20:14)
[2021-07-17] MEDS: Aspirin 81 mg Enteric Coated Tablet PO SCH (09:07)
[2021-07-17] MEDS: Saccharomyces boulardii 250 MG CAP PO SCH (09:07)
[2021-07-17] MEDS: Ascorbic Acid 500 mg Chewable Tablet PO SCH (09:13)
[2021-07-17] MEDS: Sodium Bicarbonate Tab 325 MG TAB PO SCH ×3 (09:14→20:14)
[2021-07-17] MEDS: NIFEdipine XL 30 MG TAB PO SCH (09:14)
[2021-07-17 11:17] LABS: Albumin 2.9 g/dL (3.4-4.8); Anion Gap 16 mmol/L (10-20); BUN (Urea Nitrogen) 33 mg/dL (8.4-25.7); BUN/Creatinine Ratio 14.04; Calc. Creatinine Clearance 29 mL/min (70-130); Calcium 8.5 mg/dL (7.8-10.44); Carbon Dioxide 26 mmol/L (23-31); Chloride 103 mmol/L (98-107); Glucose 160 mg/dL (83-110); Phosphorus 2.8 mg/dL (2.3-4.7); Potassium 3.7 mmol/L (3.5-5.1); Sodium 141 mmol/L (136-145)
[2021-07-17 14:22] VITALS: BMI 26.4
[2021-07-17] MEDS ORDERED: Empagliflozin 10 MG TAB PO SCH (19:00)
[2021-07-17] MEDS: Atorvastatin Calcium 40 MG TAB PO SCH (20:14)
[2021-07-18] MEDS: Morphine 4 MG/ML VIAL SLOW IVP PRN ×3 (00:26→11:54)
[2021-07-18] MEDS: Piperacillin/Tazobactam 3.375 GM in Sodium Chloride 0.9% 100 ML IVPB SCH ×3 (04:46→20:48)
[2021-07-18] MEDS: hydrALAZINE 25 MG TAB PO SCH ×3 (04:47→20:47)
[2021-07-18 05:56] LABS: Hemoglobin 8.5 g/dL (14.0-18.0); Mean Corpuscular HGB CONC 31.6 g/dL (32.0-36.0); Mean Corpuscular Hemoglobin 28.3 pg (27.0-31.0); Mean Corpuscular Volume 89.6 fL (78.0-98.0); Mean Platelet Volume 7.9 fL (7.4-10.4); Platelet Count 227 thou/uL (130-400); Red Blood Cell (RBC) Count 3.01 mill/uL (4.70-6.10)
[2021-07-18 06:02] LABS: Albumin 2.8 g/dL (3.4-4.8); Anion Gap 16 mmol/L (10-20); BUN (Urea Nitrogen) 30 mg/dL (8.4-25.7); BUN/Creatinine Ratio 13.27; Calc. Creatinine Clearance 30 mL/min (70-130); Calcium 8.6 mg/dL (7.8-10.44); Carbon Dioxide 26 mmol/L (23-31); Chloride 104 mmol/L (98-107); Glucose 117 mg/dL (83-110); Phosphorus 2.9 mg/dL (2.3-4.7); Potassium 3.3 mmol/L (3.5-5.1); Sodium 143 mmol/L (136-145)
[2021-07-18] MEDS: Sodium Bicarbonate Tab 325 MG TAB PO SCH ×3 (08:55→20:47)
[2021-07-18] MEDS: Aspirin 81 mg Enteric Coated Tablet PO SCH (08:59)
[2021-07-18] MEDS: Ascorbic Acid 500 mg Chewable Tablet PO SCH (08:59)
[2021-07-18] MEDS: Heparin 5,000 UNITS/ML VIAL SC SCH ×2 (09:00→21:00)
[2021-07-18] MEDS: Saccharomyces boulardii 250 MG CAP PO SCH (09:00)
[2021-07-18] MEDS: NIFEdipine XL 30 MG TAB PO SCH (09:00)
[2021-07-18] MEDS: Empagliflozin 10 MG TAB PO SCH (09:00)
[2021-07-18] MEDS: Carvedilol 25 MG TAB PO SCH ×2 (09:00→20:46)
[2021-07-18] MEDS ORDERED: Potassium Chloride 20 MEQ TAB PO SCH (09:45)
[2021-07-18] MEDS: HYDROcodone/Acetaminophen 5/325 mg Tablet PO PRN ×2 (17:02→20:49)
[2021-07-18] MEDS: Atorvastatin Calcium 40 MG TAB PO SCH (20:46)
[2021-07-19] MEDS: hydrALAZINE 25 MG TAB PO SCH (04:56)
[2021-07-19] MEDS: HYDROcodone/Acetaminophen 5/325 mg Tablet PO PRN ×3 (04:57→21:31)
[2021-07-19] MEDS: Piperacillin/Tazobactam 3.375 GM in Sodium Chloride 0.9% 100 ML IVPB SCH ×3 (05:06→21:28)
[2021-07-19 05:34] LABS: Albumin 2.8 g/dL (3.4-4.8); Anion Gap 14 mmol/L (10-20); BUN (Urea Nitrogen) 24 mg/dL (8.4-25.7); Calc. Creatinine Clearance 29 mL/min (70-130); Calcium 8.3 mg/dL (7.8-10.44); Carbon Dioxide 27 mmol/L (23-31); Chloride 105 mmol/L (98-107); Glucose 96 mg/dL (83-110); Magnesium 1.8 mg/dL (1.6-2.6); Phosphorus 2.9 mg/dL (2.3-4.7); Potassium 3.4 mmol/L (3.5-5.1); Sodium 143 mmol/L (136-145)
[2021-07-19] MEDS: hydrOXYzine 25 MG TAB PO PRN (08:42)
[2021-07-19] MEDS: Empagliflozin 10 MG TAB PO SCH (08:44)
[2021-07-19] MEDS: Sodium Bicarbonate Tab 325 MG TAB PO SCH ×3 (08:44→21:28)
[2021-07-19] MEDS: Aspirin 81 mg Enteric Coated Tablet PO SCH (08:44)
[2021-07-19] MEDS: Ascorbic Acid 500 mg Chewable Tablet PO SCH (08:44)
[2021-07-19] MEDS: Carvedilol 25 MG TAB PO SCH ×2 (08:44→21:28)
[2021-07-19] MEDS: Saccharomyces boulardii 250 MG CAP PO SCH (08:45)
[2021-07-19] MEDS: Heparin 5,000 UNITS/ML VIAL SC SCH ×2 (08:46→21:28)
[2021-07-19] MEDS ORDERED: Potassium Chloride 20 MEQ TAB PO SCH (10:15)
[2021-07-19 12:02] LABS: SARS-CoV-2 PCR by NAA Not Detected (NotDetected)
[2021-07-19] MEDS: Atorvastatin Calcium 40 MG TAB PO SCH (21:28)
[2021-07-20] MEDS: Piperacillin/Tazobactam 3.375 GM in Sodium Chloride 0.9% 100 ML IVPB SCH ×3 (05:13→22:58)
[2021-07-20] MEDS: HYDROcodone/Acetaminophen 5/325 mg Tablet PO PRN ×4 (05:17→23:07)
[2021-07-20 05:56] LABS: Albumin 2.9 g/dL (3.4-4.8); Anion Gap 14 mmol/L (10-20); BUN (Urea Nitrogen) 23 mg/dL (8.4-25.7); BUN/Creatinine Ratio 9.75; Calc. Creatinine Clearance 29 mL/min (70-130); Calcium 8.6 mg/dL (7.8-10.44); Carbon Dioxide 25 mmol/L (23-31); Chloride 108 mmol/L (98-107); Glucose 103 mg/dL (83-110); Phosphorus 2.8 mg/dL (2.3-4.7); Potassium 3.7 mmol/L (3.5-5.1); Sodium 143 mmol/L (136-145)
[2021-07-20] MEDS: Sodium Bicarbonate Tab 325 MG TAB PO SCH ×3 (09:05→23:00)
[2021-07-20] MEDS: Saccharomyces boulardii 250 MG CAP PO SCH (09:06)
[2021-07-20] MEDS: Carvedilol 25 MG TAB PO SCH ×2 (09:06→19:09)
[2021-07-20] MEDS: Ascorbic Acid 500 mg Chewable Tablet PO SCH (09:06)
[2021-07-20] MEDS: Aspirin 81 mg Enteric Coated Tablet PO SCH (09:06)
[2021-07-20] MEDS: Empagliflozin 10 MG TAB PO SCH (09:07)
[2021-07-20] MEDS: Heparin 5,000 UNITS/ML VIAL SC SCH ×2 (09:08→23:08)
[2021-07-20] MEDS: Sacubitril 49 MG/Valsartan 51 MG TABLET PO SCH ×2 (09:19→23:08)
[2021-07-20] MEDS: EPOETIN ALFA-EPBX (ESRD) 10,000 UNIT/ML VIAL SC SCH (09:22)
[2021-07-20] MEDS ORDERED: Acetaminophen 325 MG TAB PO PRN (11:39)
[2021-07-20] MEDS: Morphine 4 MG/ML VIAL SLOW IVP PRN ×3 (12:03→23:07)
[2021-07-20] MEDS: Atorvastatin Calcium 40 MG TAB PO SCH (23:00)
[2021-07-21] MEDS: Piperacillin/Tazobactam 3.375 GM in Sodium Chloride 0.9% 100 ML IVPB SCH ×3 (05:19→21:10)
[2021-07-21] MEDS: HYDROcodone/Acetaminophen 5/325 mg Tablet PO PRN ×2 (05:19→23:55)
[2021-07-21 06:18] LABS: Hemoglobin 8.4 g/dL (14.0-18.0); Hypochromia SLIGHT = 6-15 cells (100X) (0-5/hpf); Lymphocytes 22 % (21-51); MDiff Complete? YES; Mean Corpuscular HGB CONC 30.1 g/dL (32.0-36.0); Mean Corpuscular Hemoglobin 27.8 pg (27.0-31.0); Mean Corpuscular Volume 92.3 fL (78.0-98.0); Mean Platelet Volume 8.2 fL (7.4-10.4); Monocytes 5 % (0-10); Neutrophil 73 % (42-75); Platelet Count 176 thou/uL (130-400); Platelet Morphology Comment Appears Adequate; RBC Distribution Width 18.1 % (11.5-14.5); Red Blood Cell (RBC) Count 3.01 mill/uL (4.70-6.10)
[2021-07-21 06:19] LABS: Anion Gap 17 mmol/L (10-20); BUN (Urea Nitrogen) 25 mg/dL (8.4-25.7); Calc. Creatinine Clearance 25 mL/min (70-130); Calcium 8.7 mg/dL (7.8-10.44); Carbon Dioxide 24 mmol/L (23-31); Chloride 108 mmol/L (98-107); Glucose 103 mg/dL (83-110); Potassium 3.5 mmol/L (3.5-5.1); Sodium 145 mmol/L (136-145)
[2021-07-21] MEDS ORDERED: hydrALAZINE 25 MG TAB PO SCH (08:30)
[2021-07-21] MEDS: Aspirin 81 mg Enteric Coated Tablet PO SCH (08:45)
[2021-07-21] MEDS: Sodium Bicarbonate Tab 325 MG TAB PO SCH ×3 (08:45→21:09)
[2021-07-21] MEDS: Ascorbic Acid 500 mg Chewable Tablet PO SCH (08:45)
[2021-07-21] MEDS: Morphine 4 MG/ML VIAL SLOW IVP PRN (08:46)
[2021-07-21] MEDS: Carvedilol 25 MG TAB PO SCH ×2 (08:46→21:09)
[2021-07-21] MEDS: Heparin 5,000 UNITS/ML VIAL SC SCH ×2 (08:46→21:09)
[2021-07-21] MEDS: Empagliflozin 10 MG TAB PO SCH (08:46)
[2021-07-21] MEDS: Saccharomyces boulardii 250 MG CAP PO SCH (08:46)
[2021-07-21] MEDS: Guaifenesin DM 100-10/5 ML UDCUP PO PRN (09:06)
[2021-07-21] MEDS: NIFEdipine XL 30 MG TAB PO SCH (09:07)
[2021-07-21] MEDS: hydrALAZINE 25 MG TAB PO SCH ×2 (14:39→21:10)
[2021-07-21] MEDS: Atorvastatin Calcium 40 MG TAB PO SCH (21:10)
[2021-07-22 04:56] LABS: #Eosinphils 0.4 thou/uL (0.0-0.7); #Neutrophils 6.1 thou/uL (1.40-6.50); %Basophils 0.3 % (0.0-1.0); %Eosinophils 4.7 % (0.0-10.0); %Lymphocytes 11.3 % (21.0-51.0); %Neutrophils 71.7 % (42.0-75.0); Hemoglobin 7.5 g/dL (14.0-18.0); Mean Corpuscular HGB CONC 30.5 g/dL (32.0-36.0); Mean Corpuscular Hemoglobin 28.1 pg (27.0-31.0); Mean Corpuscular Volume 92.2 fL (78.0-98.0); Mean Platelet Volume 7.9 fL (7.4-10.4); Platelet Count 168 thou/uL (130-400); RBC Distribution Width 17.7 % (11.5-14.5); Red Blood Cell (RBC) Count 2.66 mill/uL (4.70-6.10); White Blood Cell (WBC) Count 8.5 thou/uL (4.8-10.8)
[2021-07-22] MEDS: hydrALAZINE 25 MG TAB PO SCH ×3 (05:27→21:34)
[2021-07-22] MEDS: Piperacillin/Tazobactam 3.375 GM in Sodium Chloride 0.9% 100 ML IVPB SCH ×3 (05:30→21:34)
[2021-07-22] MEDS: Heparin 5,000 UNITS/ML VIAL SC SCH ×2 (09:12→21:31)
[2021-07-22] MEDS: Guaifenesin DM 100-10/5 ML UDCUP PO PRN (09:12)
[2021-07-22] MEDS: Sodium Bicarbonate Tab 325 MG TAB PO SCH ×3 (09:13→21:32)
[2021-07-22] MEDS: Aspirin 81 mg Enteric Coated Tablet PO SCH (09:13)
[2021-07-22] MEDS: Empagliflozin 10 MG TAB PO SCH (09:13)
[2021-07-22] MEDS: NIFEdipine XL 30 MG TAB PO SCH (09:13)
[2021-07-22] MEDS: Saccharomyces boulardii 250 MG CAP PO SCH (09:13)
[2021-07-22] MEDS: Carvedilol 25 MG TAB PO SCH ×2 (09:14→21:31)
[2021-07-22] MEDS: Ascorbic Acid 500 mg Chewable Tablet PO SCH (09:14)
[2021-07-22] MEDS: Morphine 4 MG/ML VIAL SLOW IVP PRN (10:25)
[2021-07-22 11:05] LABS: Albumin 2.9 g/dL (3.4-4.8); Anion Gap 16 mmol/L (10-20); BUN (Urea Nitrogen) 25 mg/dL (8.4-25.7); BUN/Creatinine Ratio 8.93; Calc. Creatinine Clearance 24 mL/min (70-130); Calcium 8.5 mg/dL (7.8-10.44); Carbon Dioxide 24 mmol/L (23-31); Chloride 108 mmol/L (98-107); Glucose 163 mg/dL (83-110); Phosphorus 3.6 mg/dL (2.3-4.7); Potassium 3.4 mmol/L (3.5-5.1); Sodium 145 mmol/L (136-145)
[2021-07-22] MEDS ORDERED: EPOETIN ALFA-EPBX (ESRD) 2,000 UNIT/ML VIAL SC SCH (11:15)
[2021-07-22] MEDS ORDERED: EPOETIN ALFA-EPBX (ESRD) 3,000 UNIT/ML VIAL SC SCH (11:15)
[2021-07-22] MEDS: Atorvastatin Calcium 40 MG TAB PO SCH (21:30)
[2021-07-23] MEDS: Piperacillin/Tazobactam 3.375 GM in Sodium Chloride 0.9% 100 ML IVPB SCH ×3 (06:16→21:05)
[2021-07-23] MEDS: hydrALAZINE 25 MG TAB PO SCH ×3 (06:17→21:05)
[2021-07-23 06:53] LABS: Albumin 2.7 g/dL (3.4-4.8); Anion Gap 15 mmol/L (10-20); BUN (Urea Nitrogen) 23 mg/dL (8.4-25.7); BUN/Creatinine Ratio 8.55; Calc. Creatinine Clearance 25 mL/min (70-130); Calcium 8.5 mg/dL (7.8-10.44); Carbon Dioxide 24 mmol/L (23-31); Chloride 109 mmol/L (98-107); Glucose 101 mg/dL (83-110); Phosphorus 3.6 mg/dL (2.3-4.7); Potassium 3.1 mmol/L (3.5-5.1); Sodium 145 mmol/L (136-145)
[2021-07-23] MEDS: HYDROcodone/Acetaminophen 5/325 mg Tablet PO PRN (07:13)
[2021-07-23] MEDS ORDERED: Potassium Chloride 20 MEQ TAB PO SCH (07:30)
[2021-07-23 08:29] LABS: Magnesium 2.1 mg/dL (1.6-2.6)
[2021-07-23] MEDS: Aspirin 81 mg Enteric Coated Tablet PO SCH (08:48)
[2021-07-23] MEDS: Sodium Bicarbonate Tab 325 MG TAB PO SCH ×3 (08:48→21:03)
[2021-07-23] MEDS: Ascorbic Acid 500 mg Chewable Tablet PO SCH (08:48)
[2021-07-23] MEDS: Empagliflozin 10 MG TAB PO SCH (08:48)
[2021-07-23] MEDS: Carvedilol 25 MG TAB PO SCH ×2 (08:48→21:02)
[2021-07-23] MEDS: Heparin 5,000 UNITS/ML VIAL SC SCH ×2 (08:49→21:10)
[2021-07-23] MEDS: Saccharomyces boulardii 250 MG CAP PO SCH (08:49)
[2021-07-23] MEDS: NIFEdipine XL 30 MG TAB PO SCH (08:49)
[2021-07-23] MEDS: Atorvastatin Calcium 40 MG TAB PO SCH (21:02)
[2021-07-24] MEDS: Piperacillin/Tazobactam 3.375 GM in Sodium Chloride 0.9% 100 ML IVPB SCH ×3 (05:38→21:56)
[2021-07-24] MEDS: hydrALAZINE 25 MG TAB PO SCH ×3 (05:39→21:56)
[2021-07-24 08:14] LABS: Hemoglobin 9.6 g/dL (14.0-18.0); Mean Corpuscular HGB CONC 31.5 g/dL (32.0-36.0); Mean Corpuscular Hemoglobin 29.1 pg (27.0-31.0); Mean Corpuscular Volume 92.3 fL (78.0-98.0); Platelet Count 200 thou/uL (130-400); RBC Distribution Width 18.7 % (11.5-14.5); White Blood Cell (WBC) Count 6.7 thou/uL (4.8-10.8)
[2021-07-24] MEDS: Ascorbic Acid 500 mg Chewable Tablet PO SCH (08:21)
[2021-07-24 08:22] LABS: Anion Gap 18 mmol/L (10-20); BUN (Urea Nitrogen) 20 mg/dL (8.4-25.7); Calc. Creatinine Clearance 27 mL/min (70-130); Calcium 8.6 mg/dL (7.8-10.44); Carbon Dioxide 20 mmol/L (23-31); Chloride 112 mmol/L (98-107); Glucose 94 mg/dL (83-110); Potassium 3.6 mmol/L (3.5-5.1); Sodium 146 mmol/L (136-145)
[2021-07-24] MEDS: Empagliflozin 10 MG TAB PO SCH (08:22)
[2021-07-24] MEDS: Aspirin 81 mg Enteric Coated Tablet PO SCH (08:22)
[2021-07-24] MEDS: Carvedilol 25 MG TAB PO SCH ×2 (08:22→21:56)
[2021-07-24] MEDS: Sodium Bicarbonate Tab 325 MG TAB PO SCH ×3 (08:23→21:55)
[2021-07-24] MEDS: NIFEdipine XL 30 MG TAB PO SCH (08:23)
[2021-07-24] MEDS: Saccharomyces boulardii 250 MG CAP PO SCH (08:23)
[2021-07-24] MEDS: Heparin 5,000 UNITS/ML VIAL SC SCH ×2 (08:23→21:55)
[2021-07-24] MEDS: EPOETIN ALFA-EPBX (ESRD) 2,000 UNIT/ML VIAL SC SCH (10:30)
[2021-07-24] MEDS: EPOETIN ALFA-EPBX (ESRD) 3,000 UNIT/ML VIAL SC SCH (10:30)
[2021-07-24] MEDS ORDERED: Epoetin (ESRD) 20,000 UNITS/ML SC SCH (11:00)
[2021-07-24] MEDS: Atorvastatin Calcium 40 MG TAB PO SCH (21:55)
[2021-07-25] MEDS: Guaifenesin DM 100-10/5 ML UDCUP PO PRN ×3 (00:17→22:20)
[2021-07-25] MEDS: hydrALAZINE 25 MG TAB PO SCH ×3 (05:50→22:24)
[2021-07-25] MEDS: Piperacillin/Tazobactam 3.375 GM in Sodium Chloride 0.9% 100 ML IVPB SCH ×3 (05:51→22:22)
[2021-07-25] MEDS: Sodium Bicarbonate Tab 325 MG TAB PO SCH ×3 (10:20→22:23)
[2021-07-25] MEDS: Carvedilol 25 MG TAB PO SCH ×2 (10:20→22:25)
[2021-07-25] MEDS: Saccharomyces boulardii 250 MG CAP PO SCH (10:20)
[2021-07-25] MEDS: Heparin 5,000 UNITS/ML VIAL SC SCH ×2 (10:21→22:25)
[2021-07-25] MEDS: Empagliflozin 10 MG TAB PO SCH (10:21)
[2021-07-25] MEDS: Aspirin 81 mg Enteric Coated Tablet PO SCH (10:21)
[2021-07-25] MEDS: Ascorbic Acid 500 mg Chewable Tablet PO SCH (10:21)
[2021-07-25 11:54] LABS: Anion Gap 15 mmol/L (10-20); BUN (Urea Nitrogen) 18 mg/dL (8.4-25.7); Calc. Creatinine Clearance 27 mL/min (70-130); Calcium 8.4 mg/dL (7.8-10.44); Carbon Dioxide 23 mmol/L (23-31); Chloride 111 mmol/L (98-107); Glucose 129 mg/dL (83-110); Potassium 3.2 mmol/L (3.5-5.1); Sodium 146 mmol/L (136-145)
[2021-07-25] MEDS ORDERED: Potassium Bicarbonate/Cit Ac 20 MEQ TAB PO SCH (13:30)
[2021-07-25] MEDS: Atorvastatin Calcium 40 MG TAB PO SCH (22:23)
[2021-07-25] MEDS: Amoxicillin/Potassium Clav 500 MG TAB PO SCH (23:03)
[2021-07-26] MEDS: Piperacillin/Tazobactam 3.375 GM in Sodium Chloride 0.9% 100 ML IVPB SCH ×3 (04:58→20:58)
[2021-07-26] MEDS: hydrALAZINE 25 MG TAB PO SCH ×3 (04:59→21:06)
[2021-07-26 09:12] LABS: SARS-CoV-2 PCR by NAA Not Detected (NotDetected)
[2021-07-26] MEDS: Sodium Bicarbonate Tab 325 MG TAB PO SCH ×3 (09:54→21:03)
[2021-07-26] MEDS: Aspirin 81 mg Enteric Coated Tablet PO SCH (09:54)
[2021-07-26] MEDS: Ascorbic Acid 500 mg Chewable Tablet PO SCH (09:55)
[2021-07-26] MEDS: Empagliflozin 10 MG TAB PO SCH (09:55)
[2021-07-26] MEDS: Spironolactone 25 MG TAB PO SCH (09:55)
[2021-07-26] MEDS: Amoxicillin/Potassium Clav 500 MG TAB PO SCH ×2 (09:55→21:02)
[2021-07-26] MEDS: Heparin 5,000 UNITS/ML VIAL SC SCH ×2 (09:55→21:14)
[2021-07-26] MEDS: Carvedilol 25 MG TAB PO SCH ×2 (09:55→21:04)
[2021-07-26] MEDS: Saccharomyces boulardii 250 MG CAP PO SCH (09:56)
[2021-07-26] MEDS: EPOETIN ALFA-EPBX (ESRD) 2,000 UNIT/ML VIAL SC SCH (09:57)
[2021-07-26] MEDS: EPOETIN ALFA-EPBX (ESRD) 3,000 UNIT/ML VIAL SC SCH (09:57)
[2021-07-26] MEDS: HYDROcodone/Acetaminophen 5/325 mg Tablet PO PRN (11:10)
[2021-07-26] MEDS: Guaifenesin DM 100-10/5 ML UDCUP PO PRN (11:13)
[2021-07-26] MEDS ORDERED: Senokot S 8.6-50 MG TAB PO PRN (13:43)
[2021-07-26] MEDS ORDERED: Benzonatate 100 MG CAP PO PRN (13:43)
[2021-07-26] MEDS ORDERED: Loperamide HCl 2 MG CAP PO PRN (13:43)
[2021-07-26] MEDS ORDERED: GUAIFENESIN SF SOLN 200 MG/10 ML UDCUP PO PRN (13:43)
[2021-07-26] MEDS ORDERED: Bisacodyl 5 MG TAB PO PRN (13:43)
[2021-07-26] MEDS ORDERED: Loratadine 10 MG TAB PO PRN (13:43)
[2021-07-26] MEDS ORDERED: Sodium Chloride 0.65% Nasal 44 ML BOT EA NARE PRN (13:43)
[2021-07-26] MEDS ORDERED: Hydrocerin (Eucerin) Cream 120 gm Jar TOP PRN (13:43)
[2021-07-26] MEDS ORDERED: Cepastat Lozenges 1 LOZ PO PRN (13:43)
[2021-07-26] MEDS ORDERED: Artificial Tear Sol 15 ML BOT EA EYE PRN (13:43)
[2021-07-26] MEDS ORDERED: Zolpidem Tartrate 5 MG TAB PO PRN (13:43)
[2021-07-26] MEDS: Atorvastatin Calcium 40 MG TAB PO SCH (21:03)
[2021-07-27] MEDS: Guaifenesin DM 100-10/5 ML UDCUP PO PRN (04:49)
[2021-07-27] MEDS: hydrALAZINE 25 MG TAB PO SCH (05:14)
[2021-07-27] MEDS: Piperacillin/Tazobactam 3.375 GM in Sodium Chloride 0.9% 100 ML IVPB SCH (05:15)
[2021-07-27] MEDS: HYDROcodone/Acetaminophen 5/325 mg Tablet PO PRN (05:20)
[2021-07-27] MEDS: Sodium Bicarbonate Tab 325 MG TAB PO SCH (08:24)
[2021-07-27] MEDS: Aspirin 81 mg Enteric Coated Tablet PO SCH (08:25)
[2021-07-27] MEDS: Saccharomyces boulardii 250 MG CAP PO SCH (08:25)
[2021-07-27] MEDS: Heparin 5,000 UNITS/ML VIAL SC SCH (08:25)
[2021-07-27] MEDS: Ascorbic Acid 500 mg Chewable Tablet PO SCH ×2 (08:25→09:04)
[2021-07-27] MEDS: Carvedilol 25 MG TAB PO SCH (08:25)
[2021-07-27] MEDS: Spironolactone 25 MG TAB PO SCH (08:25)
[2021-07-27 08:38] VITALS: BP 175/98; TEMP 98.1
[2021-07-27] MEDS: Empagliflozin 10 MG TAB PO SCH (08:39)
[2021-07-27] MEDS: Amoxicillin/Potassium Clav 500 MG TAB PO SCH (08:40)
== END 2021-07-27 09:00 | DRG 143 ==
LOC: ERS 21:26 → SJJU 07-06 00:50 → EEVIPCON 07-06 00:50 → 2NO 07-07 16:15 → SURG A 07-16 21:49
PROVIDERS: ADMIT Student in an Organized Health Care Education/Training Program; ATTEND Internal Medicine
PROC: 0W960ZZ Drainage of Neck, Open Approach (ICD-10-PCS; principal; 2021-07-06)
PROC: 0W960ZZ Drainage of Neck, Open Approach (ICD-10-PCS; 2021-07-09)
PROC: 02HV33Z Insertion of Infusion Device into Superior Vena Cava, Percutaneous Approach (ICD-10-PCS; 2021-07-09)
PROC: B548ZZA Ultrasonography of Superior Vena Cava, Guidance (ICD-10-PCS; 2021-07-09)
DX: J39.0 Retropharyngeal and parapharyngeal abscess (principal); I21.A1 Myocardial infarction type 2; J96.01 Acute respiratory failure with hypoxia; I48.92 Unspecified atrial flutter; N17.9 Acute kidney failure, unspecified; I50.22 Chronic systolic (congestive) heart failure; E87.2 Acidosis; I13.0 Hypertensive heart and chronic kidney disease with heart failure and stage 1 through stage 4 chronic kidney disease, or unspecified chronic kidney disease; N18.4 Chronic kidney disease, stage 4 (severe); J90 Pleural effusion, not elsewhere classified; Z20.822 Contact with and (suspected) exposure to COVID-19; I48.91 Unspecified atrial fibrillation; H40.9 Unspecified glaucoma; M54.9 Dorsalgia, unspecified; G89.29 Other chronic pain; B18.2 Chronic viral hepatitis C; R13.13 Dysphagia, pharyngeal phase; E87.6 Hypokalemia; E78.00 Pure hypercholesterolemia, unspecified; E78.5 Hyperlipidemia, unspecified; I25.5 Ischemic cardiomyopathy; I25.10 Atherosclerotic heart disease of native coronary artery without angina pectoris; I16.0 Hypertensive urgency; E86.9 Volume depletion, unspecified; E11.22 Type 2 diabetes mellitus with diabetic chronic kidney disease; D63.1 Anemia in chronic kidney disease; B95.4 Other streptococcus as the cause of diseases classified elsewhere; B96.89 Other specified bacterial agents as the cause of diseases classified elsewhere; R91.8 Other nonspecific abnormal finding of lung field; B95.2 Enterococcus as the cause of diseases classified elsewhere; E87.70 Fluid overload, unspecified; L29.9 Pruritus, unspecified; I25.2 Old myocardial infarction; Z98.890 Other specified postprocedural states; Z79.02 Long term (current) use of antithrombotics/antiplatelets; Z79.899 Other long term (current) drug therapy; Z87.891 Personal history of nicotine dependence; Z95.1 Presence of aortocoronary bypass graft; Z91.041 Radiographic dye allergy status; Z95.810 Presence of automatic (implantable) cardiac defibrillator; Z72.89 Other problems related to lifestyle; Z79.51 Long term (current) use of inhaled steroids; Z79.4 Long term (current) use of insulin; Z79.82 Long term (current) use of aspirin; Z85.118 Personal history of other malignant neoplasm of bronchus and lung
CPT/HCPCS: 36415; 36569; 70490; 70491; 71045; 71250; 71260; 74022; 76770; 80048; 80053; 80061; 80069; 80202; 81001; 82140; 82550; 82553; 82570; 82728; 83036; 83540; 83550; 83605; 83735; 83880; 84156; 84300; 84484; 84540; 85025; 85027; 85610; 85730; 86850; 86900; 86901; 87040; 87070; 87076; 87077; 87081; 87186; 87205; 93005; 93010; 93306; 94640; 96365; 96367; 96375; C1751; J0360; J0692; J1100; J1170; J1200; J1644; J1650; J1940; J2270; J2310; J2405; J2543; J2704; J2765; J2920; J3010; J3370; J3430; J3490; J7042; J7070; J7120; J7620; Q5105; Q9967; S0028; U0002; U0003; U0005